=== PATIENT | female | born 1950 | race Caucasian/White ===

== ENCOUNTER → 2016-05-21 | Outpatient (CLI) | payer BC ==
[~2016-05-21] MED LIST: ADVIN25/60 INH; ALBUAER2 INH; ASPI325T45 PO; ATOR-24 PO; CALC500C70 PO; CLR10 PO; GLC/500 PO; ISS/10 PO; METO-551 PO; MOME50SP5; NTRGSL/4 UT; NUTRTAB40 PO; OMEP20CA9 PO
[2016-05-21 12:23] LABS: BASO % 0.6 %; BASO ABS # 0.03 K/uL (0-0.2); COMPLETE YES; EOS % 1.9 %; IG% 0.2 %; LYMPH % 33.6 %; LYMPH ABS # 1.78 K/uL (1.2-3.4); MEAN CELL VOLUME 89.8 fL (80-100); MEAN CORPUSCULAR HEMOGLOBIN 29.4 pg (25-34); MEAN CORPUSCULAR HGB CONC 32.8 g/dl (32-36); MEAN PLATELET VOLUME 10.4 fL (7.4-10.4); MONO % 10.6 %; NEUT % 53.1 %; PLATELET COUNT 245 K/uL (130-400); RED BLOOD COUNT 4.01 M/uL (4.2-5.4); WHITE BLOOD COUNT 5.29 K/uL (4.8-10.8)
[2016-05-21 13:14] LABS: ALT/SGPT 27 U/L (12-78); BLOOD UREA NITROGEN 9 mg/dl (7-18); BUN/CREATININE RATIO 15.6 (10-20); CALCIUM 9.2 mg/dl (8.5-10.1); CARBON DIOXIDE 28 mmol/L (21-32); CHLORIDE 108 mmol/L (98-107); CHOLESTEROL 189 mg/dl (0-200); CREATININE 0.59 mg/dl (0.60-1.20); GLUCOSE 95 mg/dl (70-99); POTASSIUM 4.1 mmol/L (3.5-5.1); SODIUM 144 mmol/L (136-145); TRIGLYCERIDES 149 mg/dl (0-150); VERY LOW DENSITY LIPOPROT CALC 30 mg/dl
[2016-05-21 13:23] LABS: ALB/GLOB RATIO 1.3 (0.9-2); ALKALINE PHOSPHATASE 89 U/L (45-117); AST/SGOT 15 U/L (15-37); CHOLESTEROL/HDL RATIO 3.7; HDL CHOLESTEROL 51 mg/dl; LDL CHOLESTEROL CALCULATED 108 mg/dl
[2016-05-21 13:25] LABS: ESTIMATED AVERAGE GLUCOSE 134 mg/dl; HA1C FLAG Normal (Normal)
== END | disposition home or self-care (01) ==
LOC: C.LAB1850 11:24
PROVIDERS: ATTEND Internal Medicine
DX: E11.9 Type 2 diabetes mellitus without complications (principal); D64.9 Anemia, unspecified; E78.5 Hyperlipidemia, unspecified; Z12.11 Encounter for screening for malignant neoplasm of colon

== ENCOUNTER → 2016-05-22 | Outpatient (CLI) | payer BC | END | disposition home or self-care (01) | LOC: C.LABSPEC 14:02 | PROVIDERS: ATTEND Internal Medicine | DX: E78.5 Hyperlipidemia, unspecified (principal); E11.9 Type 2 diabetes mellitus without complications; D64.9 Anemia, unspecified; Z12.11 Encounter for screening for malignant neoplasm of colon ==

== ENCOUNTER → 2016-05-26 | Outpatient (CLI) | payer BC | END | disposition home or self-care (01) | LOC: C.LAB1850 12:08 | PROVIDERS: ATTEND Internal Medicine | DX: E11.9 Type 2 diabetes mellitus without complications (principal); E78.5 Hyperlipidemia, unspecified; D64.9 Anemia, unspecified; Z12.11 Encounter for screening for malignant neoplasm of colon; Z11.59 Encounter for screening for other viral diseases ==

== ENCOUNTER → 2016-06-05 | Outpatient (CLI) | payer BC ==
--- NOTE | 2016-06-05 13:04 | MAMMOGRAPHY REPORT ---
BILATERAL DIGITAL DIAGNOSTIC MAMMOGRAM TOMOSYNTHESIS WITH CAD: 06/05/2016 CLINICAL HISTORY: 12 month follow-up of left breast asymmetries. TECHNIQUE: Breast tomosynthesis in addition to standard 2D mammography was performed. Current study was also evaluated with a Computer Aided Detection (CAD) system. Bilateral CC and MLO 2-D and majo synthesis images were obtained. COMPARISON: Comparison is made to exams dated: 06/05/2015 mammogram, 12/04/2014 ultrasound, 12/05/19 15 mammogram, 05/02/2014 mammogram, 05/02/2014 ultrasound, and 04/21/2014 mammogram - [facility]. BREAST COMPOSITION: There are scattered areas of fibroglandular density in both breasts. FINDINGS: There are no suspicious masses, calcifications, or areas of architectural distortion noted in either breast. There has been no significant interval change compared to prior exams. Small no dular asymmetry seen within the left superior breast is stable dating back to the April 2014 exam, a nd considered benign given long-term stability. IMPRESSION: ACR BI-RADS CATEGORY 2: BENIGN There is no mammographic evidence of malignancy in either breast. A 1 year screening mammogram is re commended. The patient has been verbally notified of the results. Approximately 10% of breast cancers are not detected with mammography. A negative mammographic repor t should not delay biopsy if a clinically suggestive mass is present. Sally Urena M.D. /:06/05/2016 11:10:05 [employer] Feeder: Almita Johnson, [facility] letter sent: Normal 1/2 BI-RADS Code: ACR BI-RADS Category 2: Benign
== END | disposition home or self-care (01) ==
LOC: C.MAMM 10:47
PROVIDERS: ATTEND Internal Medicine
DX: R92.8 Other abnormal and inconclusive findings on diagnostic imaging of breast (principal)

== ENCOUNTER → 2016-09-08 | Outpatient (CLI) | payer BC | END | disposition home or self-care (01) | LOC: C.MAMM 09:18 | PROVIDERS: ATTEND Internal Medicine | DX: M85.851 Other specified disorders of bone density and structure, right thigh (principal); M85.852 Other specified disorders of bone density and structure, left thigh ==

== ENCOUNTER → 2016-11-24 | Outpatient (CLI) | payer BC ==
[2016-11-24 12:42] LABS: ALT/SGPT 34 U/L (12-78); AST/SGOT 21 U/L (15-37); BLOOD UREA NITROGEN 10 mg/dl (7-18); BUN/CREATININE RATIO 16.4 (10-20); CALCIUM 8.8 mg/dl (8.5-10.1); CARBON DIOXIDE 28 mmol/L (21-32); CHLORIDE 109 mmol/L (98-107); CREATININE 0.63 mg/dl (0.60-1.20); GLUCOSE 87 mg/dl (70-99); POTASSIUM 3.9 mmol/L (3.5-5.1); SODIUM 144 mmol/L (136-145)
[2016-11-24 12:45] LABS: ALB/GLOB RATIO 1.3 (0.9-2); ALKALINE PHOSPHATASE 85 U/L (45-117)
[2016-11-24 12:56] LABS: ESTIMATED AVERAGE GLUCOSE 134 mg/dl; HA1C FLAG Normal (Normal)
== END | disposition home or self-care (01) ==
LOC: C.LAB1850 11:31
PROVIDERS: ATTEND Internal Medicine
DX: E11.9 Type 2 diabetes mellitus without complications (principal)

== ENCOUNTER → 2017-05-05 | Outpatient (CLI) | payer BC ==
[2017-05-05 09:31] LABS: BASO % 0.7 %; BASO ABS # 0.04 K/uL (0-0.2); EOS % 4.1 %; EOS ABS # 0.23 K/uL (0-0.5); HEMATOCRIT 36.9 % (37-47); IG# 0.01 K/uL (0.00-0.02); LYMPH % 33.6 %; LYMPH ABS # 1.89 K/uL (1.2-3.4); MEAN CELL VOLUME 90.9 fL (80-100); MEAN CORPUSCULAR HEMOGLOBIN 29.6 pg (25-34); MEAN CORPUSCULAR HGB CONC 32.5 g/dl (32-36); MEAN PLATELET VOLUME 10.1 fL (7.4-10.4); MONO ABS # 0.62 K/uL (0.11-0.59); NEUT % 50.4 %; NEUT ABS # 2.84 K/uL (1.4-6.5); PLATELET COUNT 253 K/uL (130-400); RED CELL DISTRIBUTION WIDTH CV 14.9 % (11.5-14.5); WHITE BLOOD COUNT 5.63 K/uL (4.8-10.8)
[2017-05-05 09:52] LABS: HEMOGLOBIN A1C 6.1 % (4.5-5.6)
[2017-05-05 10:06] LABS: ALBUMIN 3.8 gm/dl (3.4-5.0); BLOOD UREA NITROGEN 7 mg/dl (7-18); CARBON DIOXIDE 29 mmol/L (21-32); GLUCOSE 103 mg/dl (70-99); POTASSIUM 3.9 mmol/L (3.5-5.1); SODIUM 141 mmol/L (136-145)
[2017-05-05 10:16] LABS: ALKALINE PHOSPHATASE 92 U/L (45-117); ALT/SGPT 34 U/L (12-78); AST/SGOT 20 U/L (15-37); CHOLESTEROL 194 mg/dl (0-200); LDL CHOLESTEROL CALCULATED 108 mg/dl; TOTAL PROTEIN 7.1 gm/dl (6.4-8.2); TRANSFERRIN 299 mg/dl (200-360)
== END | disposition home or self-care (01) ==
LOC: C.LAB1850 08:49
PROVIDERS: ATTEND Internal Medicine
DX: D64.9 Anemia, unspecified (principal); E11.9 Type 2 diabetes mellitus without complications

== ENCOUNTER 2019-11-29 13:04 | Observation (INO) ==
[2019-11-29] MEDS ORDERED: ONDANSETRON INJ 2 MG/ML 2 ML VIAL IV STA ×2 (13:13→15:17)
[2019-11-29] MEDS ORDERED: SODIUM CHLORIDE 0.9% 1000ML 1,000 ML IV SCH (13:15)
[2019-11-29] MEDS ORDERED: fentaNYL citrate 100 MCG/2 ML VIAL IV STA ×3 (13:22→16:22)
[2019-11-29] MEDS ORDERED: FAMOTIDINE 20MG IV PUSH 20 MG/5 ML SYR IV STA (13:22)
--- NOTE | 2019-11-29 13:26 | Emergency Department Note ---
Impression & Plan Acute cholecystitis, Nausea & vomiting, Weakness, Myalgia ED Provider Note Provider: Preet Borges MD DATE OF SERVICE:11/29/2019 CHIEF COMPLAINT: Nausea, vomiting, weakness HISTORY OF PRESENT ILLNESS: Patient is a 69-year-old female history of CAD with stents, hyperlipidemia, hypertension, diabetes, UTI presenting here today with her son stating that she has had chills, fevers, abdominal pain, vomiting starting 2 days ago. Denies any known exposures to sick contacts. Patient did have a telehealth visit this morning to discuss the symptoms and outpatient COVID testing was ordered. Patient states she had yohan pains and nausea after zoroastrian on Thursday that improved some yesterday but still with some central mid abdominal burning in her stomach. Was able to eat some yesterday. This morning pain worsened and significant nausea with several episodes of vomiting. Denies any diarrhea or constipation symptoms. She denies any blood in the vomit today. Chills reported and feels poor overall with myalgias but denies fever greater than 100. Denies any chest pain or shortness of breath. Denies sore throat at this point or sinus congestion. Denies urinary symptoms. Denies radiation of the pain to her back or down the legs. REVIEW OF SYSTEMS: A total of 10 review of systems was obtained and negative except as stated above in the HPI. PAST MEDICAL HISTORY: As noted above MEDICATIONS: Reviewed home medication list SOCIAL HISTORY: Lives by herself, non-smoker PHYSICAL EXAM: GENERAL: alert and oriented appears fatigued and right has an emesis bag in her hand Head: normocephalic and atraumatic EYES: No injection, discharge or icterus. NECK: Trachea midline. Supple. ENT: Mucous membranes pink and moist. LUNGS: Airway patent. No retractions. Breath sounds clear HEART: Regular rate and rhythm. No chest wall tenderness ABDOMEN: Soft with some mild to moderate upper mid abdominal tenderness into the right upper quadrant. No guarding. Not peritoneal SKIN: Acyanotic, warm, dry, without rashes EXTREMITIES: Without swelling, tenderness or deformity NEUROLOGICAL: No focal deficits. No aphasia. No facial droop or slurred speech. Ambulatory. EK bpm sinus rhythm with sinus arrhythmia. Left axis. No acute ST segment elevation noted. Nonspecific T wave change at aVL in comparison to previous from May 11, 2013 without significant change CONTINUOUS CARDIAC MONITORING: was ordered and showed a heart rate of 65 bpm in normal sinus rhythm occasional sinus arrhythmia Patient's laboratory studies and imaging reviewed. Differential includes Appendicitis, infections, diverticulitis, UTI, obstruction, mesenteric ischemia, aortic pathology, inflammatory bowel disease, renal colic, PUD, pancreatitis, biliary pathology, hernia, volvulus, constipati on, as well as other pathologies. IMPRESSION/MEDICAL DECISION MAKING: Patient presents with some mid abdominal burning and nausea for several days with worsening vomiting now weakness and myalgias. Does not appear meningitic. Denies chest pain or shortness of breath and lower suspicion this represents acute ACS or PE given this. Given current pandemic I will send COVID test. CT the abdomen pelvis obtained well with basic laboratory studies. Denies urinary symptoms seem atypical for UTI. No significant extremity swelling and I doubt fluid overload or DVT. No focal deficits and doubt we need imaging and doubt this represents CVA at this point. Given some IV hydration, fentanyl, Pepcid, and Zofran for symptom control.. Possible intra-abdominal process such as hepatitis or pancreatitis versus GI issues such as gastritis. Could be a viral early gastroenteritis as well. Not significantly tender and I doubt any acute intra-abdominal perforation. Laboratory studies show no anemia. Leukocytosis of 13 is noted. No evidence of transaminitis or significant electrolyte abnormality. Influenza negative. Chest x-ray again without acute findings. Called by radiology based on the CT there concern for some mild gallbladder distention and infiltration with some gas likely within the gallbladder wall. Given this discussed with the patient and general surgery. Patient does have some right upper quadrant tenderness but I would not say a Rosario's and not peritoneal. Discussed with Dr. Randhawa of general surgery including the findings of gas in the gallbladder and he states that he would evaluate the patient and wished for Zosyn to be given. He recommended medicine admission. The hospitalist was contacted. Patient has been hemodynamically stable here. Given additional narcotics for pain control. Surgery evaluated and plan to take the patient to the OR from the emergency department for surgical treatment of cholecystitis. Hospitalist was aware. DIAGNOSIS: Nausea and vomiting, acute cholecystitis DISPOSITION: Admission Past Med/Surg History Medical History CAD in [place] artery Carotid atherosclerosis Chronic cerebral ischemia Coronary artery disease Diabetes mellitus type 2, controlled GERD (gastroesophageal reflux disease) Hyperlipidemia Hypertension IL (myocardial infarction) Nausea Osteopenia Polyp, sigmoid colon Surgical History History of cardiac catheterization History of colonoscopy July 2019 History of coronary artery stent placement History of tonsillectomy S/P total hysterectomy and bilateral salpingo-oophorectomy S/P tubal ligation Family History Father Myocardial infarction Cardiac disorder Mother Cardiac disorder Sister Cardiac disorder Denies family history of Ovarian cancer Prostate cancer Breast cancer Colorectal cancer Social History Smoking Status: Never smoker Second Hand Exposure: No; Do You Dip or Chew Tobacco: No; Tobacco Cessation Education Requested by Patient: No Hx Alcohol Use: Yes Alcohol type: wine Hx Substance Use: No Preferred Language: Yakut Communication Ability: Effective Paper Supervisor Required: No Beliefs That Will Affect Care: None marital status: Current Living Situation: Alone current occupational status: retired Other Information That Helps Us Care for You: No Feels Safe at Home: Yes Safety Concerns: Feels Safe At This Time Dental Care, Regularly: Yes Physical Activity Frequency: Daily Physical Activity Frequency Comment: yardwork and walking Seatbelt Use: always Sunscreen Use: Yes Assistive Devices: Glasses Allergies Allergies Allergy/AdvReac Type Severity Reaction Status Date / Time Iodinated Contrast Media Allergy Unknown Unknown rxn Verified 10/28/19 14:42 iodine Allergy Unknown unknown Verified 10/28/19 14:42 shellfish derived Allergy Unknown SHRIMP Verified 10/28/19 14:42 ALLERGY Sulfa (Sulfonamide AdvReac Severe N&V, LIM[place], Verified 10/28/19 14:42 Antibiotics) body aches, cough lisinopril AdvReac Unknown COUGH Verified 11/29/19 17:01 diflunisal [From Dolobid] AdvReac Unknown Verified 11/29/19 15:50 Home Meds Home Medications Medication Instructions Recorded Confirmed albuterol sulfate 2.5 mg CONTINUOUS NEBULIZATION Q6H 08/04/18 11/29/19 #1 ml albuterol sulfate 90 mcg/actuation 2 puffs INHALATION Q6H PRN gm 08/04/18 11/29/19 aerosol inhaler budesonide-formoterol HFA 160 2 puffs INHALATION Q12H #1 gm 08/04/18 11/29/19 mcg-4.5 mcg/actuation aerosol inhaler mometasone 50 mcg/actuation nasal 1 sprays INTRANASAL DAILY gm 08/04/18 11/29/19 spray aspirin 325 mg tablet 325 mg PO DAILY tab 11/26/18 11/29/19 cyanocobalamin (vitamin B-12) 1,000 mcg SL DAILY tab 09/09/19 11/29/19 1,000 mcg sublingual tablet nitroglycerin 0.4 mg sublingual 0.4 mg SL .COMPLEX PRN tab 09/09/19 11/29/19 tablet calcium carbonate 600 mg (1,500 1 cap PO DAILY cap 10/28/19 11/29/19 mg)-vitamin D3 500 unit capsule latanoprost 1 drp OPB HS 11/29/19 11/29/19 Previous Rx's Medication Instructions Recorded isosorbide mononitrate 10 mg tablet 10 mg PO TID #270 tab 09/23/18 metoprolol tartrate 50 mg tablet 75 mg PO BID #270 tabs 12/06/18 metformin 500 mg tablet 500 mg PO DAILY #90 tab 01/25/19 omeprazole 20 mg capsule,delayed 20 mg PO DAILY #90 cap 07/21/19 release atorvastatin 40 mg tablet 40 mg PO DAILY #90 tab 10/19/19 ondansetron HCl 4 mg tablet 4 mg PO Q6H PRN #60 tab 11/29/19 Results & Data (ED) Vital Signs Vital Signs - 24 hr 11/29/19 13:07 11/29/19 14:14 11/29/19 14:59 Temperature 37.1 C Temperature Source Oral Pulse Rate 59 L Pulse Rate [Apical] 68 62 Pulse Rate [Left Finger] Pulse Rate from SpO2 Sensor Respiratory Rate 18 16 16 Respiratory Effort / Characteristics Respiratory Depth Respiratory Pattern Blood Pressure 152/100 H Blood Pressure [Right Arm] 166/81 H 146/91 H Blood Pressure Mean 117 Blood Pressure Mean [Right Arm] 109 109 Pulse Oximetry 95 90 93 Oxygen Delivery Method Room Air Room Air Sepsis Recent Fever Within 48 Hours Yes Sepsis New/Unexplained Change in Mental Status No Sepsis Action Taken by Nursing No Action Required 11/29/19 15:00 11/29/19 15:01 11/29/19 15:23 Temperature Temperature Source Pulse Rate 75 83 Pulse Rate [Apical] Pulse Rate [Left Finger] Pulse Rate from SpO2 Sensor 74 78 Respiratory Rate 22 29 H Respiratory Effort / Characteristics Respiratory Depth Respiratory Pattern Blood Pressure 157/72 H Blood Pressure [Right Arm] Blood Pressure Mean 87 Blood Pressure Mean [Right Arm] Pulse Oximetry 97 94 97 Oxygen Delivery Method Room Air Sepsis Recent Fever Within 48 Hours Sepsis New/Unexplained Change in Mental Status Sepsis Action Taken by Nursing 11/29/19 15:30 11/29/19 16:00 11/29/19 16:30 Temperature Temperature Source Pulse Rate 82 67 70 Pulse Rate [Apical] Pulse Rate [Left Finger] Pulse Rate from SpO2 Sensor 84 67 69 Respiratory Rate 18 21 22 Respiratory Effort / Characteristics Respiratory Depth Respiratory Pattern Blood Pressure 170/98 H 176/75 H 161/86 H Blood Pressure [Right Arm] Blood Pressure Mean 118 110 113 Blood Pressure Mean [Right Arm] Pulse Oximetry 100 100 Oxygen Delivery Method Sepsis Recent Fever Within 48 Hours Sepsis New/Unexplained Change in Mental Status Sepsis Action Taken by Nursing 11/29/19 17:00 11/29/19 17:33 Temperature 36.7 C Temperature Source Oral Pulse Rate 71 Pulse Rate [Apical] Pulse Rate [Left Finger] 88 Pulse Rate from SpO2 Sensor 72 Respiratory Rate 17 18 Respiratory Effort / Characteristics Non-Labored Spontaneous Respiratory Depth Normal Respiratory Pattern Regular Blood Pressure 169/77 H Blood Pressure [Right Arm] 154/70 H Blood Pressure Mean 93 Blood Pressure Mean [Right Arm] 98 Pulse Oximetry 99 94 Oxygen Delivery Method Room Air Sepsis Recent Fever Within 48 Hours Sepsis New/Unexplained Change in Mental Status Sepsis Action Taken by Nursing Laboratory Data Result diagrams: 11/29/19 14:00 11/29/19 14:00 Lab Results 11/29/19 11/29/19 11/29/19 Range/Units 14:00 14:00 14:00 WBC 13.50 H (4.8-10.8) K/uL RBC 4.36 (4.2-5.4) M/uL Hgb 13.4 (12.0-16.0) g/dL Hct 40.3 (37-47) % MCV 92.4 (80-100) fL MCH 30.7 (25-34) pg MCHC 33.3 (32-36) g/dL RDW Std Deviation 49.0 H (36.4-46.3) fL RDW Coeff of Rahul 14.3 (11.5-14.5) % Plt Count 235 (130-400) K/uL MPV 10.8 H (7.4-10.4) fL Immature Gran % (Auto) 0.2 % Neut % (Auto) 86.0 % Lymph % (Auto) 7.5 % [place] % (Auto) 6.1 % Eos % (Auto) 0.1 % Baso % (Auto) 0.1 % Neut # (Auto) 11.60 H (1.4-6.5) K/uL Lymph # (Auto) 1.01 L (1.2-3.4) K/uL [place] # (Auto) 0.82 H (0.11-0.59) K/uL Eos # (Auto) 0.02 (0-0.5) K/uL Baso # (Auto) 0.02 (0-0.2) K/uL Immature Gran # (Auto) 0.03 H (0.00-0.02) K/uL PT 10.6 (9.0-12.0) Seconds INR 1.0 (0.9-1.1) Sodium 139 (136-145) mmol/L Potassium 3.5 (3.5-5.1) mmol/L Chloride 105 (98-107) mmol/L Carbon Dioxide 27 (21-32) mmol/L Anion Gap 7.0 (3-11) BUN 7 (7-18) mg/dl Creatinine 0.73 (0.6-1.2) mg/dl Est Cr Clr Drug Dosing Not Reportable Est GFR ( Amer) 96.7 Est GFR (Non-Af Amer) 83.4 BUN/Creatinine Ratio 10.2 (10-20) Glucose 138 H (70-99) mg/dl POC Glucose (70-99) mg/dl Lactate (0.4-2.0) mmol/L Calcium 9.7 (8.5-10.1) mg/dl Magnesium 2.1 (1.8-2.4) mg/dl Total Bilirubin 0.7 (0.2-1) mg/dl AST 14 L (15-37) U/L ALT 26 (12-78) U/L Alkaline Phosphatase 95 (45-117) U/L Troponin I < 0.015 (0-0.045) ng/ml Total Protein 7.6 (6.4-8.2) gm/dl Albumin 3.7 (3.4-5.0) gm/dl Globulin 3.9 (2.5-4.0) gm/dl Albumin/Globulin Ratio 0.9 (0.9-2) Lipase 83 (73-393) U/L TSH 0.948 (0.300-4.500) uIu/ml COVID-19 Eval Order COVID-19 PCR (Negative) Influ A Molecular Assay (Negative) Influ B Molecular Assay (Negative) 11/29/19 11/29/19 11/29/19 Range/Units 14:00 14:10 14:10 WBC (4.8-10.8) K/uL RBC (4.2-5.4) M/uL Hgb (12.0-16.0) g/dL Hct (37-47) % MCV (80-100) fL MCH (25-34) pg MCHC (32-36) g/dL RDW Std Deviation (36.4-46.3) fL RDW Coeff of Rahul (11.5-14.5) % Plt Count (130-400) K/uL MPV (7.4-10.4) fL Immature Gran % (Auto) % Neut % (Auto) % Lymph % (Auto) % [place] % (Auto) % Eos % (Auto) % Baso % (Auto) % Neut # (Auto) (1.4-6.5) K/uL Lymph # (Auto) (1.2-3.4) K/uL [place] # (Auto) (0.11-0.59) K/uL Eos # (Auto) (0-0.5) K/uL Baso # (Auto) (0-0.2) K/uL Immature Gran # (Auto) (0.00-0.02) K/uL PT (9.0-12.0) Seconds INR (0.9-1.1) Sodium (136-145) mmol/L Potassium (3.5-5.1) mmol/L Chloride (98-107) mmol/L Carbon Dioxide (21-32) mmol/L Anion Gap (3-11) BUN (7-18) mg/dl Creatinine (0.6-1.2) mg/dl Est Cr Clr Drug Dosing Est GFR ( Amer) Est GFR (Non-Af Amer) BUN/Creatinine Ratio (10-20) Glucose (70-99) mg/dl POC Glucose (70-99) mg/dl Lactate 1.6 (0.4-2.0) mmol/L Calcium (8.5-10.1) mg/dl Magnesium (1.8-2.4) mg/dl Total Bilirubin (0.2-1) mg/dl AST (15-37) U/L ALT (12-78) U/L Alkaline Phosphatase (45-117) U/L Troponin I (0-0.045) ng/ml Total Protein (6.4-8.2) gm/dl Albumin (3.4-5.0) gm/dl Globulin (2.5-4.0) gm/dl Albumin/Globulin Ratio (0.9-2) Lipase (73-393) U/L TSH (0.300-4.500) uIu/ml COVID-19 Eval Order Covid19 Done at [facility] COVID-19 PCR (Negative) Influ A Molecular Assay Negative (Negative) Influ B Molecular Assay Negative (Negative) 11/29/19 11/29/19 Range/Units 14:10 17:35 WBC (4.8-10.8) K/uL RBC (4.2-5.4) M/uL Hgb (12.0-16.0) g/dL Hct (37-47) % MCV (80-100) fL MCH (25-34) pg MCHC (32-36) g/dL RDW Std Deviation (36.4-46.3) fL RDW Coeff of Rahul (11.5-14.5) % Plt Count (130-400) K/uL MPV (7.4-10.4) fL Immature Gran % (Auto) % Neut % (Auto) % Lymph % (Auto) % [place] % (Auto) % Eos % (Auto) % Baso % (Auto) % Neut # (Auto) (1.4-6.5) K/uL Lymph # (Auto) (1.2-3.4) K/uL [place] # (Auto) (0.11-0.59) K/uL Eos # (Auto) (0-0.5) K/uL Baso # (Auto) (0-0.2) K/uL Immature Gran # (Auto) (0.00-0.02) K/uL PT (9.0-12.0) Seconds INR (0.9-1.1) Sodium (136-145) mmol/L Potassium (3.5-5.1) mmol/L Chloride (98-107) mmol/L Carbon Dioxide (21-32) mmol/L Anion Gap (3-11) BUN (7-18) mg/dl Creatinine (0.6-1.2) mg/dl Est Cr Clr Drug Dosing Est GFR ( Amer) Est GFR (Non-Af Amer) BUN/Creatinine Ratio (10-20) Glucose (70-99) mg/dl POC Glucose 138 H (70-99) mg/dl Lactate (0.4-2.0) mmol/L Calcium (8.5-10.1) mg/dl Magnesium (1.8-2.4) mg/dl Total Bilirubin (0.2-1) mg/dl AST (15-37) U/L ALT (12-78) U/L Alkaline Phosphatase (45-117) U/L Troponin I (0-0.045) ng/ml Total Protein (6.4-8.2) gm/dl Albumin (3.4-5.0) gm/dl Globulin (2.5-4.0) gm/dl Albumin/Globulin Ratio (0.9-2) Lipase (73-393) U/L TSH (0.300-4.500) uIu/ml COVID-19 Eval Order COVID-19 PCR NEGATIVE (Negative) Influ A Molecular Assay (Negative) Influ B Molecular Assay (Negative) Administered Medications Discontinued Medications Fentanyl Citrate (Fentanyl Citrate 100 Mcg/2 Ml Vial) 50 mcg IV NOW STA Stop: 11/29/19 13:23 Last Admin: 11/29/19 14:08 Dose: 50 mcg Documented by: [id number] Fentanyl Citrate (Fentanyl Citrate 100 Mcg/2 Ml Vial) 50 mcg IV NOW STA Stop: 11/29/19 15:18 Last Admin: 11/29/19 15:26 Dose: 50 mcg Documented by: [id number] Fentanyl Citrate (Fentanyl Citrate 100 Mcg/2 Ml Vial) 50 mcg IV NOW STA Stop: 11/29/19 16:23 Last Admin: 11/29/19 16:46 Dose: 50 mcg Documented by: [id number] Sodium Chloride (Nss 1000ml) 1,000 mls @ 999 mls/hr IV .Q1H1M RA Stop: 11/29/19 14:15 Last Infusion: 11/29/19 15:04 Dose: 0 mls/hr Documented by: [id number] Admin: 11/29/19 14:08 Dose: 999 mls/hr Documented by: [id number] Famotidine (Pepcid 20mg Iv Push) 20 mg in 5 mls @ 2.5 mls/min IV NOW STA Stop: 11/29/19 13:23 Last Admin: 11/29/19 14:08 Dose: 2.5 mls/min Documented by: [id number] Piperacillin Sod/Tazobactam Sod (Zosyn) 4.5 gm in 120 mls @ 240 mls/hr IV NOW ONE Stop: 11/29/19 15:55 Last Infusion: 11/29/19 16:20 Dose: 0 mls/hr Documented by: [id number] Admin: 11/29/19 15:44 Dose: 240 mls/hr Documented by: [id number] Ondansetron HCl (Ondansetron Inj 2 Mg/Ml 2 Ml Vial) 4 mg IV NOW STA Stop: 11/29/19 13:14 Last Admin: 11/29/19 14:08 Dose: 4 mg Documented by: [id number] Ondansetron HCl (Ondansetron Inj 2 Mg/Ml 2 Ml Vial) 4 mg IV NOW STA Stop: 11/29/19 15:18 Last Admin: 11/29/19 15:26 Dose: 4 mg Documented by: [id number] Discharge Plan Visit Data Chief Complaint: Illness Stated Complaint: SICK, DOESN'T FEEL WELL ED Provider: Preet Borges Discharge Problem: Acute cholecystitis, Nausea & vomiting, Weakness, Myalgia Discharge Instructions Interventions: ED Discharge Assessment Last Done: 11/29/19 17:25 Forms Stand Alone Forms: Thryve Prescriptions Prescriptions: No Action isosorbide mononitrate 10 mg tablet 10 mg PO TID Qty: 270 RF: 3 metoprolol tartrate 50 mg tablet 75 mg PO BID Qty: 270 RF: 3 metformin 500 mg tablet 500 mg PO DAILY Qty: 90 RF: 3 omeprazole 20 mg capsule,delayed release(DR/EC) 20 mg PO DAILY Qty: 90 RF: 3 atorvastatin 40 mg tablet 40 mg PO DAILY Qty: 90 RF: 1 aspirin 325 mg tablet 325 mg PO DAILY RF: 0 calcium carbonate-vitamin D3 [Calcium 600 with Vitamin D3] 600 mg(1,500mg) - 500 unit capsule 1 cap PO DAILY RF: 0 mometasone 50 mcg/actuation spray,non-aerosol 1 sprays intranasal DAILY RF: 0 Symbicort 160-4.5 mcg/actuation HFA aerosol inhaler 2 puffs inhalation Q12H Qty: 1 RF: 0 albuterol sulfate 2.5 mg /3 mL (0.083 %) solution for nebulization 2.5 mg continuous nebulization Q6H Qty: 1 RF: 0 albuterol sulfate 90 mcg/actuation HFA aerosol inhaler 2 puffs inhalation Q6H PRN (Reason: Shortness Of Breath) RF: 0 cyanocobalamin (vitamin B-12) 1,000 mcg tablet, sublingual 1,000 mcg SL DAILY RF: 0 nitroglycerin 0.4 mg tablet, sublingual 0.4 mg SL .COMPLEX PRN (Reason: chest pain) RF: 0 ondansetron HCl [Zofran] 4 mg tablet 4 mg PO Q6H PRN (Reason: nausea and vomiting) Qty: 60 RF: 0 latanoprost 0.005 % drops 1 drp OPB HS RF: 0 Referrals Referrals: Juju Balbuena MD [Primary Care Provider] - Discharge Problem: Nausea & vomiting Qualifiers: Vomiting type: unspecified Vomiting Intractability: non-intractable Qualified Code(s): R11.2 - Nausea with vomiting, unspecified
--- NOTE | 2019-11-29 14:02 | XRay Report ---
XR chest 1V portable CLINICAL HISTORY: weakness COMPARISON STUDY: Chest radiograph and chest CT May 10, 2013. FINDINGS: Lung volumes are mildly diminished. This is unchanged. Mild bibasilar opacities favor atele ctasis. There is no pneumothorax or pleural effusion. Cardiomediastinal silhouette is stable. IMPRESSION: No acute cardiopulmonary findings. No change in appearance of the chest. ACT 112: Negative or not required by law. Electronically signed by: Dany Pitt M.D. 11/29/2019 2:00 PM
[2019-11-29 14:24] LABS: Basophils # (auto) 0.02 K/uL (0-0.2); Basophils % (auto) 0.1 %; Eosinophils # (auto) 0.02 K/uL (0-0.5); Eosinophils % (auto) 0.1 %; Hematocrit (blood only) 40.3 % (37-47); Hemoglobin 13.4 g/dL (12.0-16.0); Immature Granulocytes # (auto) 0.03 K/uL (0.00-0.02); Immature Granulocytes % (auto) 0.2 %; Lymphocytes # (auto) 1.01 K/uL (1.2-3.4); Lymphocytes % (auto) 7.5 %; Mean Corpuscular Hemoglobin 30.7 pg (25-34); Mean Corpuscular Hgb Conc 33.3 g/dL (32-36); Mean Corpuscular Volume 92.4 fL (80-100); Mean Platelet Volume 10.8 fL (7.4-10.4); Monocytes # (auto) 0.82 K/uL (0.11-0.59); Monocytes % (auto) 6.1 %; Platelet Count 235 K/uL (130-400); RDW Coefficient of Variation 14.3 % (11.5-14.5); Red Blood Count 4.36 M/uL (4.2-5.4)
[2019-11-29 14:31] LABS: Prothrombin Time 10.6 Seconds (9.0-12.0)
[2019-11-29 14:41] LABS: Alanine Aminotransferase 26 U/L (12-78); Albumin Level 3.7 gm/dl (3.4-5.0); BUN Creatinine Ratio 10.2 (10-20); Blood Urea Nitrogen 7 mg/dl (7-18); Calcium 9.7 mg/dl (8.5-10.1); Carbon Dioxide 27 mmol/L (21-32); Chloride 105 mmol/L (98-107); Est GFR (African American) 96.7; Est GFR (Non-African American) 83.4; Glucose 138 mg/dl (70-99); Lipase 83 U/L (73-393); Magnesium 2.1 mg/dl (1.8-2.4); Potassium 3.5 mmol/L (3.5-5.1); Sodium 139 mmol/L (136-145)
[2019-11-29 14:52] LABS: Albumin Globulin Ratio 0.9 (0.9-2); Alkaline Phosphatase 95 U/L (45-117); Aspartate Aminotransferase 14 U/L (15-37); Bilirubin,Total 0.7 mg/dl (0.2-1); Globulin 3.9 gm/dl (2.5-4.0); Thyroid Stimulating Hormone 0.948 uIu/ml (0.300-4.500); Total Protein 7.6 gm/dl (6.4-8.2); Troponin I < 0.015 ng/ml (0-0.045)
[2019-11-29 14:52] LABS: Influenza A virus by PCR Negative (Negative); Influenza B virus by PCR Negative (Negative)
--- NOTE | 2019-11-29 14:59 | CT Scan Report ---
CT OF THE ABDOMEN AND PELVIS WITHOUT CONTRAST CLINICAL HISTORY: Nausea, vomiting and abdominal pain. COMPARISON STUDY: CT of the chest, abdomen and pelvis May 10, 2013. TECHNIQUE: Axial images of the abdomen and pelvis were obtained without IV contrast. Images were revi ewed in the axial, sagittal, and coronal planes. Automated exposure control was utilized for the vanessa dy. A dose lowering technique was utilized adhering to the principles of ALARA. FINDINGS: A trace right pleural effusion is noted. No pneumatosis, free air or portal venous gas is p resent. Note is made of a small amount of gas likely within the gallbladder wall. There is also gas w ithin the cystic duct and a small amount of pneumobilia within the left hepatic lobe. Gallbladder is mildly distended. There is mild pericholecystic infiltration. There are stones within the gallbladder . There is a 7 mm stone likely within the gallbladder neck or cystic duct. There is mild dilatation o f the common bile duct. There is a probable diverticulum of the second portion the duodenum. Evaluati on of the abdomen and pelvis is suboptimal on this unenhanced exam. The spleen, adrenal glands, kidne ys and pancreas are normal. Is no hydronephrosis. There is trace fluid within the pelvis. There is co lonic diverticulosis without evidence for acute diverticulitis. The appendix is unremarkable. There a re no suspicious osseous lesions. IMPRESSION: 1. Cholelithiasis, including a stone within the gallbladder neck or cystic duct. Mild gallbladder dis tention and adjacent infiltration. These findings suggest acute cholecystitis. In addition, small bola unt of gas likely within the gallbladder wall as well as pneumobilia. These findings suggest emphysem atous cholecystitis. Findings discussed with Dr. Borges at time of dictation. 2. Mild biliary ductal dilatation which be correlated with liver function tests. 3. No bowel obstruction. Normal appendix. ACT 112: Negative or not required by law. Electronically signed by: Dany Pitt M.D. 11/29/2019 2:58 PM
[2019-11-29] MEDS ORDERED: PIPERACILLIN/TAZOBACTAM 4.5 GM/120 ML BAG IV ONE (15:26)
[2019-11-29] MEDS ORDERED: PIPERACILL/TAZOBAC CONSULT ACTIVE PRN (15:26)
--- NOTE | 2019-11-29 16:31 | Electrocardiogram Report ---
Test Reason : Blood Pressure : / mmHG Vent. Rate : 066 BPM Atrial Rate : 066 BPM P-R Int : 132 ms QRS Dur : 088 ms QT Int : 416 ms P-R-T Axes : 053 -40 050 degrees QTc Int : 436 ms Sinus rhythm with marked sinus arrhythmia Left axis deviation Anterior infarct (cited on or before 21-APR-2001) Abnormal ECG When compared with ECG of 11-MAY-2013 14:11, No significant change was found Confirmed by Mt Juan ([id number]) on 11/29/2019 4:31:21 PM Referred By: REFERRED SELF Confirmed By:Mt Juan
--- NOTE | 2019-11-29 16:53 | History & Physical Report ---
Date of Service November 29, 2019 Assessment & Plan (1) Acute cholecystitis: Zosyn IV as recommended by surgery - emphysematous gallbladder N.p.o., IV fluids Consult general surgery - ER discussed with Dr. Randhawa Revised cardiac risk index 2; 10.1% 30-day risk of , [place], cardiac arrest. Patient is medically optimized for surgery at this time. (2) Diabetes mellitus type 2, controlled: HbA1c 6.2. Hold Metformin BSG ACHS. NovoLog sliding scale. (3) Coronary artery disease: Postoperatively: Continue aspirin but switch to 81 mg p.o. daily Continue metoprolol tartrate 75 mg p.o. twice daily, isosorbide mononitrate 10 mg p.o. 3 times daily, atorvastatin 40 mg p.o. daily. (4) Hypertension: Postoperatively continue metoprolol with hold parameters, isosorbide mononitrate as above. (5) Hyperlipidemia: Continue atorvastatin 40 mg p.o. daily (6) GERD (gastroesophageal reflux disease): Switch omeprazole for pantoprazole as per hospital formulary Admission and Anticipated Discharge Date Admission Date: 11/29/2019 History of Present Illness Chief Complaint: Abdominal pain Primary Care Provider: Juju Balbuena MD Marlena Pérez is a 69-year-old female who presents to the ER with low-grade fever, chills, abdominal pain, nausea and vomiting. Initial symptoms started with which appeared to be mild and intermittent approximately 2 days ago. She denies anything unusual to eat. Started having a low-grade fever with chills this morning. Had a telehealth visit and recommended COVID-19 testing was ordered but never taken. No change in bowel movements, no melena or bright red blood in stool. No nausea or vomiting. Last bowel movement yesterday. Abdominal pain much more severe today therefore decided to come to the ER. Denies any urinary symptoms. In the ER she was noted to have right upper quadrant pain on examination and subsequent CT concerning for emphysematous cholecystitis with gas noted within the cystic duct and pneumobilia in the left hepatic lobe. ER physician discussed with Dr. Randhawa who plans to take the patient emergently to surgery. Medicine consulted for admission. COVID-19 PCR taken in ER negative. She has a significant history of CAD with stents however reports good exercise tolerance without chest pains or shortness of breath. Seen by her canary breeder in August, no changes at that time and no change in her symptoms since then. Allergies Allergy/AdvReac Type Severity Reaction Status Date / Time Iodinated Contrast Media Allergy Unknown Unknown rxn Verified 10/28/19 14:42 iodine Allergy Unknown unknown Verified 10/28/19 14:42 shellfish derived Allergy Unknown SHRIMP Verified 10/28/19 14:42 ALLERGY Sulfa (Sulfonamide AdvReac Severe N&V, [place], Verified 10/28/19 14:42 Antibiotics) body aches, cough lisinopril AdvReac Unknown COUGH Verified 11/29/19 17:01 diflunisal [From Dolobid] AdvReac Unknown Verified 11/29/19 15:50 Home Medications Home Medications Medication Instructions Recorded Confirmed Type albuterol sulfate 2.5 mg CONTINUOUS NEBULIZATION Q6H 08/04/18 11/29/19 History #1 ml albuterol sulfate 90 mcg/actuation 2 puffs INHALATION Q6H PRN gm 08/04/18 11/29/19 History aerosol inhaler budesonide-formoterol HFA 160 2 puffs INHALATION Q12H #1 gm 08/04/18 11/29/19 History mcg-4.5 mcg/actuation aerosol inhaler mometasone 50 mcg/actuation nasal 1 sprays INTRANASAL DAILY gm 08/04/18 11/29/19 History spray isosorbide mononitrate 10 mg tablet 10 mg PO TID #270 tab 09/23/18 11/29/19 Rx aspirin 325 mg tablet 325 mg PO DAILY tab 11/26/18 11/29/19 History metoprolol tartrate 50 mg tablet 75 mg PO BID #270 tabs 12/06/18 11/29/19 Rx metformin 500 mg tablet 500 mg PO DAILY #90 tab 01/25/19 11/29/19 Rx omeprazole 20 mg capsule,delayed 20 mg PO DAILY #90 cap 07/21/19 11/29/19 Rx release cyanocobalamin (vitamin B-12) 1,000 mcg SL DAILY tab 09/09/19 11/29/19 History 1,000 mcg sublingual tablet nitroglycerin 0.4 mg sublingual 0.4 mg SL .COMPLEX PRN tab 09/09/19 11/29/19 History tablet atorvastatin 40 mg tablet 40 mg PO DAILY #90 tab 10/19/19 11/29/19 Rx calcium carbonate 600 mg (1,500 1 cap PO DAILY cap 10/28/19 11/29/19 History mg)-vitamin D3 500 unit capsule latanoprost 1 drp OPB HS 11/29/19 11/29/19 History ondansetron HCl 4 mg tablet 4 mg PO Q6H PRN #60 tab 11/29/19 11/29/19 Rx oxycodone-acetaminophen [Percocet] 1 tab PO Q6H PRN #20 tab 12/01/19 Rx Past Med/Surg History Medical History CAD in [place] artery Carotid atherosclerosis Chronic cerebral ischemia Coronary artery disease Diabetes mellitus type 2, controlled GERD (gastroesophageal reflux disease) Hyperlipidemia Hypertension [place] (myocardial infarction) Nausea Osteopenia Polyp, sigmoid colon Surgical History History of cardiac catheterization History of colonoscopy July 2019 History of coronary artery stent placement History of tonsillectomy S/P total hysterectomy and bilateral salpingo-oophorectomy S/P tubal ligation Family History Father Myocardial infarction Cardiac disorder Mother Cardiac disorder Sister Cardiac disorder Denies family history of Ovarian cancer Prostate cancer Breast cancer Colorectal cancer Social History Smoking Status: Never smoker Second Hand Exposure: No; Hx Alcohol Use: Yes Alcohol type: wine Hx Substance Use: No Preferred Language: Icelandic Communication Ability: Effective Dinkey Mechanic Required: No Beliefs That Will Affect Care: None marital status: / Current Living Situation: Alone current occupational status: retired Feels Safe at Home: Yes Dental Care, Regularly: Yes Physical Activity Frequency: Daily Physical Activity Frequency Comment: yardwork and walking Seatbelt Use: always Sunscreen Use: Yes Assistive Devices: Glasses Review of Systems Review of Systems: All systems reviewed & are unremarkable except as noted in HPI & below Physical Exam Constitutional: well developed and well nourished; no acute distress Eyes: + anicteric sclerae; normal pupil size ENMT: external ear and nose normal, oropharynx normal Neck: normal visual inspection and trachea midline; no tracheal deviation Respiratory: normal respiratory effort, lungs clear to auscultation Cardiovascular: RRR, no murmur, no edema Gastrointestinal (Abdomen): Inspection/Auscultation: abdomen normal to inspection and normal bowel sounds; abdomen not distended Percussion/Palpation: + abdomen tender (RUQ), + guarding and abdomen soft; abdomen not rigid Musculoskeletal: no cyanosis or clubbing, extremities motor strength 5/5 Skin: no rashes, warm and dry Neurologic: moves all extremities and awake; not confused Psychiatric: A+Ox3, euthymic affect Genitourinary: no CVA tenderness Results & Data Results & Data ([facility]) Vital Signs (Past 12 Hours) Vital Signs Temp Pulse Pulse Resp BP BP Pulse Ox 11/29/19 15:01 94 11/29/19 14:59 62 16 146/91 H 93 11/29/19 14:14 68 16 166/81 H 90 11/29/19 13:07 37.1 C 59 L 18 152/100 H 95 Diagnostic Findings XR chest 1V portable IMPRESSION: No acute cardiopulmonary findings. No change in appearance of the chest. CT OF THE ABDOMEN AND PELVIS WITHOUT CONTRAST IMPRESSION: 1. Cholelithiasis, including a stone within the gallbladder neck or cystic duct. Mild gallbladder distention and adjacent infiltration. These findings suggest acute cholecystitis. In addition, small amount of gas likely within the gallbladder wall as well as pneumobilia. These findings suggest emphysematous cholecystitis. Findings discussed with Dr. Borges at time of dictation. 2. Mild biliary ductal dilatation which be correlated with liver function tests. 3. No bowel obstruction. Normal appendix. ECG Indication: abdominal pain Rate (beats per minute): 66 Rhythm: sinus with SA Findings: no acute ischemic change Comparison ECG Date: from (May 11, 2013) Change: no significant change Code Status & VTE Plan VTE Prophylaxis Plan VTE Prophylaxis will be ordered: Yes PG Care Time/CCT Total # of Minutes Spent Total Time Spent with Patient: Total time spent is greater than 50% in coordination of care (as documented) at patient's floor/unit and/or counseling patient: Coding Level of Care Code 41947 Initial Inpt Care Lvl 2 Diagnoses Acute cholecystitis K81.0 Diabetes mellitus type 2, controlled E11.9 Coronary artery disease I25.10 Hypertension I10 Hyperlipidemia E78.5 GERD (gastroesophageal reflux disease) K21.9
--- NOTE | 2019-11-29 16:55 | Surgery Consultation ---
Date of Consultation November 29, 2019 Assessment & Plan (1) Acute cholecystitis: (2) Emphysematous cholecystitis: pt is a 69 year-old female who presents to ER with 3 days history acute RUQ pain with nausea, vomiting, chills, IMP: Emphysematous cholecystitis, cholelithiasis, Plan, base on pt has severe RUQ pain and CT scan, I recommend to do Emergent laparoscopic cholecystectomy possible open or cholangiogram, D/W benefits, risks and alternatives of the surgery, the risks - infection, sepsis, bleeding injury [place], [place], DVT, stroke, , pt and her son understood, they agree with the surgery, I answered all questions, pre-op iv antibiotic. Present on Admission?: Yes (3) Cholelithiasis and acute cholecystitis with obstruction: History of Present Illness History of Present Illness CHIEF COMPLAINT: Nausea, vomiting, weakness HISTORY OF PRESENT ILLNESS: Patient is a 69-year-old female history of CAD with stents, hyperlipidemia, hypertension, diabetes, UTI presenting here today with her son stating that she has had chills, fevers, abdominal pain, vomiting starting 2 days ago. Denies any known exposures to sick contacts. Patient did have a telehealth visit this morning to discuss the symptoms and outpatient COVID testing was ordered. Patient states she had yohan pains and nausea after hindu on Thursday that improved some yesterday but still with some central mid abdominal burning in her stomach. Was able to eat some yesterday. This morning pain worsened and significant nausea with several episodes of vomiting. Denies any diarrhea or constipation symptoms. She denies any blood in the vomit today. Chills reported and feels poor overall with myalgias but denies fever greater than 100. Denies any chest pain or shortness of breath. Denies sore throat at this point or sinus congestion. Denies urinary symptoms. Denies radiation of the pain to her back or down the legs. I ( Zachary Randhawa MD ) got a call for consult acute cholecystitis with emphysematous cholecystitis. I reviewed pt's H/P, labs, CT scan with pt and her son, pt is still have severe RUQ pain with nausea, and vomiting and chills. pt said she can not tolerated the pain, pt has been stopped taking 325 mg ASA 3 days ago, pt denies any chest pain, REVIEW OF SYSTEMS: A total of 10 review of systems was obtained and negative except as stated above in the HPI. PAST MEDICAL HISTORY: As noted above MEDICATIONS: Reviewed home medication list SOCIAL HISTORY: Lives by herself, non-smoker Allergies Allergy/AdvReac Type Severity Reaction Status Date / Time Iodinated Contrast Media Allergy Unknown Unknown rxn Verified 10/28/19 14:42 iodine Allergy Unknown unknown Verified 10/28/19 14:42 shellfish derived Allergy Unknown SHRIMP Verified 10/28/19 14:42 ALLERGY Sulfa (Sulfonamide AdvReac Severe N&V, [place], Verified 10/28/19 14:42 Antibiotics) body aches, cough lisinopril AdvReac Unknown COUGH Verified 11/29/19 17:01 diflunisal [From Dolobid] AdvReac Unknown Verified 11/29/19 15:50 Home Medications Home Medications Medication Instructions Recorded Confirmed Type albuterol sulfate 2.5 mg CONTINUOUS NEBULIZATION Q6H 08/04/18 11/29/19 History #1 ml albuterol sulfate 90 mcg/actuation 2 puffs INHALATION Q6H PRN gm 08/04/18 11/29/19 History aerosol inhaler budesonide-formoterol HFA 160 2 puffs INHALATION Q12H #1 gm 08/04/18 11/29/19 History mcg-4.5 mcg/actuation aerosol inhaler mometasone 50 mcg/actuation nasal 1 sprays INTRANASAL DAILY gm 08/04/18 11/29/19 History spray isosorbide mononitrate 10 mg tablet 10 mg PO TID #270 tab 09/23/18 11/29/19 Rx aspirin 325 mg tablet 325 mg PO DAILY tab 11/26/18 11/29/19 History metoprolol tartrate 50 mg tablet 75 mg PO BID #270 tabs 12/06/18 11/29/19 Rx metformin 500 mg tablet 500 mg PO DAILY #90 tab 01/25/19 11/29/19 Rx omeprazole 20 mg capsule,delayed 20 mg PO DAILY #90 cap 07/21/19 11/29/19 Rx release cyanocobalamin (vitamin B-12) 1,000 mcg SL DAILY tab 09/09/19 11/29/19 History 1,000 mcg sublingual tablet nitroglycerin 0.4 mg sublingual 0.4 mg SL .COMPLEX PRN tab 09/09/19 11/29/19 History tablet atorvastatin 40 mg tablet 40 mg PO DAILY #90 tab 10/19/19 11/29/19 Rx calcium carbonate 600 mg (1,500 1 cap PO DAILY cap 10/28/19 11/29/19 History mg)-vitamin D3 500 unit capsule latanoprost 1 drp OPB HS 11/29/19 11/29/19 History ondansetron HCl 4 mg tablet 4 mg PO Q6H PRN #60 tab 11/29/19 11/29/19 Rx Patient History Medical History (Updated 11/29/19 @ 17:08 by Zachary Randhawa MD) CAD in [place] artery Carotid atherosclerosis Chronic cerebral ischemia Coronary artery disease Diabetes mellitus type 2, controlled GERD (gastroesophageal reflux disease) Hyperlipidemia Hypertension [place] (myocardial infarction) Nausea Osteopenia Polyp, sigmoid colon Surgical History History of cardiac catheterization History of colonoscopy July 2019 History of coronary artery stent placement History of tonsillectomy S/P total hysterectomy and bilateral salpingo-oophorectomy S/P tubal ligation Family History Father Myocardial infarction Cardiac disorder Mother Cardiac disorder Sister Cardiac disorder Denies family history of Ovarian cancer Prostate cancer Breast cancer Colorectal cancer Social History Smoking Status: Never smoker Hx Alcohol Use: No Hx Substance Use: No Preferred Language: Russian Communication Ability: Effective marital status: Current Living Situation: Spouse current occupational status: retired Feels Safe at Home: Yes Dental Care, Regularly: Yes Physical Activity Frequency: Daily Physical Activity Frequency Comment: yardwork and walking Seatbelt Use: always Sunscreen Use: Yes Review of Systems Review of Systems: All systems reviewed & are unremarkable except as noted in HPI & below Constitutional: as per Subjective / HPI Eyes: as per Subjective / HPI Ear, Nose, Mouth, Throat: as per Subjective / HPI Respiratory: as per Subjective / HPI Cardiovascular: as per Subjective / HPI Additional Comments: CAD, HTN, [place] 4 years ago, one cardiac stent place, pt saw her residential assistant last month, she was told her heart was Okay. carotic stenosis Gastrointestinal: as per Subjective / HPI GERD Genitourinary: as per Subjective / HPI dysuria, UTI Musculoskeletal: as per Subjective / HPI Integumentary: as per Subjective / HPI Neurologic: as per Subjective / HPI chronic cerebral ischemia Psychiatric: as per Subjective / HPI Endocrine: as per Subjective / HPI DM Hematologic / Lymphatic: as per Subjective / HPI Allergy / Immunological: as per Subjective / HPI Physical Exam Constitutional: WD/WN, vitals as above well developed, well nourished, + acute distress and + ill appearing Eyes: PERRL, conjunctivae normal, anicteric sclerae ENMT: external ear and nose normal, oropharynx normal Neck: trachea midline, no thyromegaly Respiratory: normal respiratory effort, lungs clear to auscultation Cardiovascular: RRR, no murmur, no edema Rate/Rhythm: regular rate and regular rhythm Heart Sounds: normal S1 and normal S2 Gastrointestinal (Abdomen): Percussion/Palpation: + abdomen tender and + guarding mild distend, significant tenderness at RUQ with rebound pain and palpable mass on RUQ, BS + Musculoskeletal: no cyanosis or clubbing, extremities motor strength 5/5 Skin: no rashes, warm and dry Neurologic: patellar DTR's 2+ bilat, sensation intact Psychiatric: Orientation: alert and oriented x 3 Results & Data ([facility]) Vital Signs (Past 12 Hours) Vital Signs Temp Pulse Pulse Resp BP BP Pulse Ox 11/29/19 15:01 94 11/29/19 14:59 62 16 146/91 H 93 11/29/19 14:14 68 16 166/81 H 90 11/29/19 13:07 37.1 C 59 L 18 152/100 H 95 Laboratory Results Abnormal lab results 11/29/19 11/29/19 Range/Units 14:00 14:00 WBC 13.50 H (4.8-10.8) K/uL RDW Std Deviation 49.0 H (36.4-46.3) fL MPV 10.8 H (7.4-10.4) fL Neut # (Auto) 11.60 H (1.4-6.5) K/uL Lymph # (Auto) 1.01 L (1.2-3.4) K/uL [place] # (Auto) 0.82 H (0.11-0.59) K/uL Immature Gran # (Auto) 0.03 H (0.00-0.02) K/uL Glucose 138 H (70-99) mg/dl AST 14 L (15-37) U/L Diagnostic Findings CT OF THE ABDOMEN AND PELVIS WITHOUT CONTRAST CLINICAL HISTORY: Nausea, vomiting and abdominal pain. COMPARISON STUDY: CT of the chest, abdomen and pelvis May 10, 2013. TECHNIQUE: Axial images of the abdomen and pelvis were obtained without IV contrast. Images were reviewed in the axial, sagittal, and coronal planes. Automated exposure control was utilized for the study. A dose lowering technique was utilized adhering to the principles of ALARA. FINDINGS: A trace right pleural effusion is noted. No pneumatosis, free air or portal venous gas is present. Note is made of a small amount of gas likely within the gallbladder wall. There is also gas within the cystic duct and a small amount of pneumobilia within the left hepatic lobe. Gallbladder is mildly distended. There is mild pericholecystic infiltration. There are stones within the gallbladder. There is a 7 mm stone likely within the gallbladder neck or cystic duct. There is mild dilatation of the common bile duct. There is a probable diverticulum of the second portion the duodenum. Evaluation of the abdomen and pelvis is suboptimal on this unenhanced exam. The spleen, adrenal glands, kidneys and pancreas are normal. Is no hydronephrosis. There is trace fluid within the pelvis. There is colonic diverticulosis without evidence for acute diverticulitis. The appendix is unremarkable. There are no suspicious osseous lesions. IMPRESSION: 1. Cholelithiasis, including a stone within the gallbladder neck or cystic duct. Mild gallbladder distention and adjacent infiltration. These findings suggest acute cholecystitis. In addition, small amount of gas likely within the gallbladder wall as well as pneumobilia. These findings suggest emphysematous cholecystitis. Findings discussed with Dr. Borges at time of dictation. 2. Mild biliary ductal dilatation which be correlated with liver function tests. 3. No bowel obstruction. Normal appendix.
[2019-11-29] MEDS ORDERED: LACTATED RINGER'S 1,000 ML IV SCH (17:00)
[2019-11-29] MEDS ORDERED: HYDROmorphone INJ 0.5 MG/0.5 ML SYR IV PRN (17:01)
[2019-11-29] MEDS ORDERED: BUPIVACAINE 0.5 % 5 MG/1 ML MPF 30ML VIAL ONE (17:05)
[2019-11-29] MEDS ORDERED: LIDOCAINE HCL 1% 20 ML VIAL ONE (17:05)
[2019-11-29] MEDS ORDERED: BACITRACIN OINT 15 GM TUBE ONE (17:05)
--- NOTE | 2019-11-29 17:13 | History & Physical Bridge Note ---
Date of Service November 29, 2019 History & Physical Bridge Note I have examined the patient, reviewed the History & Physical and in the interval since the performance of the History & Physical I have noted the following changes of clinical significance: no changes noted
[2019-11-29] MEDS ORDERED: ONDANSETRON INJ 2 MG/ML 2 ML VIAL ONE (17:47)
[2019-11-29] MEDS ORDERED: ROCURONIUM BROMIDE 10 MG/ML 5 ML VIAL IV ONE (17:47)
[2019-11-29] MEDS ORDERED: PROPOFOL IV EMULSION 10 MG/ML 20 ML VIAL IV ONE (17:47)
[2019-11-29] MEDS ORDERED: LIDOCAINE HCL 2% 2 ML VIAL/AMP(20MG/ML) INFIL ONE (17:47)
[2019-11-29] MEDS ORDERED: MIDAZOLAM HCL 1 MG/ML 2ML VIAL ONE (17:48)
[2019-11-29] MEDS ORDERED: fentaNYL citrate 100 MCG/2 ML VIAL ONE ×2 (17:48→18:43)
--- NOTE | 2019-11-29 17:53 | Anesthesiology Consultation ---
Date of Service November 29, 2019 Assessment & Plan Chart Review Chart Review: Acceptable Risk for Surgery Consults Requested none History Surgery Operation Date: 11/29/19 13:20 Proposed Procedures p Laparoscopic Cholecystectomy - Zachary Randhawa MD Height/Weight Height: 5 ft 1 in Allergies Allergy/AdvReac Type Severity Reaction Status Date / Time Iodinated Contrast Media Allergy Unknown Unknown rxn Verified 10/28/19 14:42 iodine Allergy Unknown unknown Verified 10/28/19 14:42 shellfish derived Allergy Unknown SHRIMP Verified 10/28/19 14:42 ALLERGY Sulfa (Sulfonamide AdvReac Severe N&V, [place], Verified 10/28/19 14:42 Antibiotics) body aches, cough lisinopril AdvReac Unknown COUGH Verified 11/29/19 17:01 diflunisal [From Dolobid] AdvReac Unknown Verified 11/29/19 15:50 Medications Home Medications Medication Instructions Recorded Confirmed Last Taken albuterol sulfate 2.5 mg CONTINUOUS NEBULIZATION Q6H 08/04/18 11/29/19 Unknown #1 ml albuterol sulfate 90 mcg/actuation 2 puffs INHALATION Q6H PRN gm 08/04/1811/28 Unknown aerosol inhaler budesonide-formoterol HFA 160 2 puffs INHALATION Q12H #1 gm 08/04/18 11/29/19 Unknown mcg-4.5 mcg/actuation aerosol inhaler mometasone 50 mcg/actuation nasal 1 sprays INTRANASAL DAILY gm 08/04/18 11/29/19 Unknown spray isosorbide mononitrate 10 mg tablet 10 mg PO TID #270 tab 09/23/18 11/29/19 Unknown aspirin 325 mg tablet 325 mg PO DAILY tab 11/26/18 11/29/19 Unknown metoprolol tartrate 50 mg tablet 75 mg PO BID #270 tabs 12/06/18 11/29/19 Unknown metformin 500 mg tablet 500 mg PO DAILY #90 tab 01/25/19 11/29/19 Unknown omeprazole 20 mg capsule,delayed 20 mg PO DAILY #90 cap 07/21/19 11/29/19 Unknown release cyanocobalamin (vitamin B-12) 1,000 mcg SL DAILY tab 09/09/19 11/29/19 Unknown 1,000 mcg sublingual tablet nitroglycerin 0.4 mg sublingual 0.4 mg SL .COMPLEX PRN tab 09/09/19 11/29/19 Unknown tablet atorvastatin 40 mg tablet 40 mg PO DAILY #90 tab 10/19/19 11/29/19 Unknown calcium carbonate 600 mg (1,500 1 cap PO DAILY cap 10/28/19 11/29/19 Unknown mg)-vitamin D3 500 unit capsule latanoprost 1 drp OPB HS 11/29/19 11/29/19 Unknown ondansetron HCl 4 mg tablet 4 mg PO Q6H PRN #60 tab 11/29/19 11/29/19 Unknown NPO Date Last Intake of Fluids: 11/29/19 Time Last Intake of Fluids: 09:00 Date Last Intake of Solids: 11/28/19 Time Last Intake of Solids: 12:00 Past Medical History Medical History CAD in [place] artery Carotid atherosclerosis Chronic cerebral ischemia Coronary artery disease Diabetes mellitus type 2, controlled GERD (gastroesophageal reflux disease) Hyperlipidemia Hypertension [place] (myocardial infarction) Nausea Osteopenia Polyp, sigmoid colon Past Family History Family History Father Myocardial infarction Cardiac disorder Mother Cardiac disorder Sister Cardiac disorder Denies family history of Ovarian cancer Prostate cancer Breast cancer Colorectal cancer Past Surgical History Surgical History History of cardiac catheterization History of colonoscopy July 2019 History of coronary artery stent placement History of tonsillectomy S/P total hysterectomy and bilateral salpingo-oophorectomy S/P tubal ligation Social History Smoking Status: Never smoker Do You Dip or Chew Tobacco: No Hx Alcohol Use: Yes Alcohol type: wine alcohol intake frequency: holidays/special occasions only Hx Substance Use: No substance use type: does not use Physical Exam Vital Signs Last Vital Signs Temp 36.7 C 11/29/19 17:33 Pulse 88 11/29/19 17:33 Resp 18 11/29/19 17:33 BP 154/70 H 11/29/19 17:33 Pulse Ox 94 11/29/19 17:33 Testing Laboratory Results 11/29/19 14:00 11/29/19 14:00 PT 10.6 Seconds (9.0-12.0) 11/29/19 14:00 INR 1.0 (0.9-1.1) 11/29/19 14:00 11/29/19 17:35 POC Glucose 138 H
[2019-11-29] MEDS ORDERED: METOCLOPRAMIDE HCL INJ 5 MG/ML 2 ML VIAL IV PRN (17:55)
[2019-11-29] MEDS ORDERED: ATROPINE SULFATE 0.1 MG/ML 10ML SYR IV PRN (17:55)
[2019-11-29] MEDS ORDERED: PROMETHAZINE HCL 12.5 MG in SODIUM CHLORIDE 0.9% 50 ML IV PRN (17:55)
[2019-11-29] MEDS ORDERED: ONDANSETRON INJ 2 MG/ML 2 ML VIAL IV PRN ×2 (17:55→21:14)
[2019-11-29] MEDS ORDERED: ePHEDrine sulfate 50 MG/ML AMP IV PRN (17:55)
[2019-11-29] MEDS ORDERED: HYDROmorphone INJ 2 MG/ML SYR/VIAL IV PRN (17:55)
[2019-11-29] MEDS ORDERED: fentaNYL citrate 100 MCG/2 ML VIAL IV PRN (17:55)
--- NOTE | 2019-11-29 20:37 | Anesthesiology Progress Note ---
Date of Service November 29, 2019 Anesthesia Post Procedure Vital Signs Vital Signs: Temp Pulse Pulse Pulse Resp BP BP 11/29/19 20:30 85 20 131/73 11/29/19 20:25 93 H 18 127/70 11/29/19 20:20 37.1 C 89 20 143/75 H 11/29/19 20:15 77 18 144/78 H 11/29/19 20:10 93 H 20 143/75 H 11/29/19 20:05 36.9 C 88 20 140/75 11/29/19 17:33 36.7 C 88 18 154/70 H 11/29/19 17:00 71 17 169/77 H 11/29/19 16:30 70 22 161/86 H 11/29/19 16:00 67 21 176/75 H 11/29/19 15:30 82 18 170/98 H 11/29/19 15:23 83 29 H 11/29/19 15:01 11/29/19 15:00 75 22 157/72 H 11/29/19 14:59 62 16 146/91 H 11/29/19 14:14 68 16 166/81 H 11/29/19 13:07 37.1 C 59 L 18 152/100 H Pulse Ox 11/29/19 20:30 95 11/29/19 20:25 92 11/29/19 20:20 95 11/29/19 20:15 99 11/29/19 20:10 100 11/29/19 20:05 100 11/29/19 17:33 94 11/29/19 17:00 99 11/29/19 16:30 100 11/29/19 16:00 100 11/29/19 15:30 11/29/19 15:23 97 11/29/19 15:01 94 11/29/19 15:00 97 11/29/19 14:59 93 11/29/19 14:14 90 11/29/19 13:07 95 Pain Intensity Abdomen: Pain Intensity: 5 Transfer of Care Handoff Completed per policy Notes Mental Status: alert / awake / arousable and participated in evaluation Patient Amnestic to Procedure: Yes Nausea / Vomiting: adequately controlled Pain: adequately controlled Airway Patency, RR, SpO2: stable & adequate BP & HR: stable & adequate Hydration State: stable & adequate Anesthetic Complications: no major complications apparent and Pt Satisfied with anesthetic care
[2019-11-29 20:45] LABS: Appearance Urine Turbid (Clear); Bacteria Urine Automated Negative (Negative); Bilirubin Urine Negative (Negative); Blood Urine 1+ (Negative); Color Urine Yellow; Epithelial Cell Urine Auto >30 /lpf (0-5); Glucose Urine UA Negative (Negative); Ketones Urine Trace (Negative); Leukocyte Esterase Urine Negative (Negative); Nitrite Urine Negative (Negative); Protein Urine Trace (Negative); RBC Urine Automated 0-4 /hpf (0-4); Specific Gravity Urine 1.019 (1.000-1.030); Urobilinogen Urine Negative (Negative); pH Urine 5.5 (4.5-7.5)
[2019-11-29 20:55] LABS: Renal Epithelial Cells Urine 0-5 /lpf (0-5)
[2019-11-29] MEDS ORDERED: NITROGLYCERIN SL 0.4 MG/TAB TAB SL PRN (21:14)
[2019-11-29] MEDS ORDERED: PHARMACY GLYCEMIC MGMT CONSULT PRN (22:03)
[2019-11-29] MEDS: METOPROLOL TARTRATE 25 MG TAB PO SCH (22:18)
[2019-11-29] MEDS: LATANOPROST 0.005% OP SOLN 2.5 ML BTL OPB SCH (22:18)
[2019-11-29] MEDS: ACETAMINOPHEN 1,000 MG/100 ML VIAL IV PRN (22:19)
[2019-11-29] MEDS: LACTATED RINGER'S 1,000 ML IV SCH (22:19)
[2019-11-29] MEDS: PATIENT'S HEIGHT AND/OR WEIGHT NEEDED SCH ×2 (22:23→22:35)
[2019-11-29] MEDS ORDERED: PIPERACILLIN/TAZOBACTAM 3.375 GM in DEXTROSE 5% 100 ML IV ONE (23:00)
[2019-11-29] MEDS ORDERED: GLUCOSE 10 TABS/TUBE PO PRN (23:17)
[2019-11-29] MEDS ORDERED: GLUCAGON FOR INJ 1 MG VIAL SQ PRN (23:17)
[2019-11-29] MEDS ORDERED: GLUCOSE 40% GEL 15 GM TUBE PO PRN (23:17)
[2019-11-29] MEDS ORDERED: DEXTROSE 50% 50 ML SYRINGE IV PRN (23:17)
[2019-11-29] MEDS ORDERED: CARBOHYDRATES FOR HYPOGLYCEMIA PO PRN (23:17)
--- NOTE | 2019-11-30 01:47 | Operative Report (OR) ---
DATE OF OPERATION: 11/29/2019 PREOPERATIVE DIAGNOSES: Acute cholecystitis with cholelithiasis, emphysema, gallbladder. POSTOPERATIVE DIAGNOSES: Acute cholecystitis with gangrene gallbladder. OPERATION: Laparoscopic cholecystectomy, JAMA drainage x1. SURGEON: Zachary Randhawa MD. ANESTHESIA: General. ESTIMATED BLOOD LOSS: About 20 mL. FINDINGS: Significant gangrene acute cholecystitis with cholelithiasis. COMPLICATIONS: None. INDICATIONS FOR THE PROCEDURE: This is a 69-year-old female who presented to the ED with 3 days history of right upper quadrant pain. The patient had a CT scan diagnosis of acute cholecystitis with emphysema, recommended to do the laparoscopic cholecystectomy, possible open, possible cholangiogram. I did talk to the patient about the benefit, the risk, alternate procedure. I indicated the risks may include but not limited such as bleeding, infection, injury to common bile duct, sepsis, myocardial infarction, DVT, stroke, even . The patient understands. She signed informed consent and I answered all questions. DETAILS OF PROCEDURE: We brought the patient to the OR, put the patient in the supine position. The patient received SCD on bilateral legs to prevent DVT and also the patient received 3.375 grams Zosyn IV for prophylactic antibiotic. The patient received general anesthesia without difficulty. The abdomen was prepped and draped in routine sterile fashion. After time-out, I injected local anesthesia by using 1% lidocaine mixed with 0.5% Marcaine just above the umbilicus, then made a small incision just above umbilicus, opened fascia and opened peritoneum under direct vision, put a Dave trocar in, connected to CO2 to create pneumoperitoneum. Flow rate is 6 liters per minute. Pressure not more than 14 mmHg. Once again, a nice pneumoperitoneum, we put the camera in, looked around the abdomen, shows normal finding on the liver. However, the gallbladder, significant gangrene gallbladder wall thickening, edema, confirmed diagnosis gangrene cholecystitis, significant distention. Then, we put another two 5 mm trocars on the right upper quadrant, one 12 trocar on the epigastric area and we used a large needle to decompress the gallbladder first. Then, we used the grasper to hold the base of gallbladder, put in the direction to the diaphragm, another grasper to hold the pouch of gallbladder, put the latter to expose the triangle of Calot. The cystic duct was identified and mobilized. The cystic duct has significant dilatation about 1 cm. We used 10 mm metal clips on the proximal cystic duct x2 and on the distal cystic duct. I then used scissor for transection of the cystic duct and rechecked and no bile leak. The cystic artery was identified and mobilized. I put 10 mm metal clips on the proximal cystic artery around the distal cystic artery and used the scissor for transection of cystic artery. Rechecked, no active bleeding. Then we used the Bovie to take down gallbladder from the liver bed. Rechecked and no active bleeding, no bile leak from the liver bed. Then we removed the gallbladder through the catch bag. Then we reinserted Dave trocar in, connected to CO2 to create pneumoperitoneum, again looked around the abdomen, no active bleeding, no bile leak from the liver bed. Based on significant gangrene gallbladder, I decided to put one 10 mm JAMA drainage in through the 5 mm trocar. Then we used a 3-0 nylon, fixed the JAMA drain on the skin. Then we removed all trocar under direct vision. Pneumoperitoneum was released. No active bleeding from the trocar site. Then we closed the umbilical incision, fascial layer by using 0 Vicryl [id number] x2, closed subcutaneous layer by using 2-0 Vicryl interruptedly, closed skin by using 4-0 Vicryl continuous running, closed the epigastric area and 12 trocar incision, fascial layer by using 0 Vicryl [id number] x2, closed subcutaneous layer by using 2-0 Vicryl interruptedly, closed skin by using 4-0 Vicryl interruptedly, closed another two 5 mm trocar site skin only by using 4-0 Vicryl. Then, we put the dressing on. The patient tolerated the procedure well. All instrument, needle and sponge count were correct x2 at the end of the case. The patient transferred to recovery room in stable condition. After the procedure, I did talk to the patient and family member about the OR finding and the procedure we did. Her son understands. The specimen sent to pathology. I attest to the content of the Intraoperative Record and any orders documented therein. Any exception s are noted below.
[2019-11-30] MEDS ORDERED: OXYCODONE/APAP 7.5/325MG TAB PO ONE (03:21)
[2019-11-30] MEDS: PIPERACILLIN/TAZOBACTAM 3.375 GM in DEXTROSE 5% 100 ML IV SCH ×3 (03:40→21:01)
[2019-11-30 06:22] LABS: Basophils # (auto) 0.02 K/uL (0-0.2); Basophils % (auto) 0.2 %; Eosinophils # (auto) 0.02 K/uL (0-0.5); Eosinophils % (auto) 0.2 %; Hematocrit (blood only) 33.9 % (37-47); Immature Granulocytes # (auto) 0.02 K/uL (0.00-0.02); Immature Granulocytes % (auto) 0.2 %; Lymphocytes # (auto) 1.86 K/uL (1.2-3.4); Lymphocytes % (auto) 15.6 %; Mean Corpuscular Hemoglobin 30.1 pg (25-34); Mean Corpuscular Hgb Conc 32.4 g/dL (32-36); Mean Corpuscular Volume 92.6 fL (80-100); Mean Platelet Volume 10.9 fL (7.4-10.4); Monocytes # (auto) 1.63 K/uL (0.11-0.59); Monocytes % (auto) 13.7 %; Neutrophils # (auto) 8.35 K/uL (1.4-6.5); Neutrophils % (auto) 70.1 %; Platelet Count 207 K/uL (130-400); RDW Coefficient of Variation 14.4 % (11.5-14.5); Red Blood Count 3.66 M/uL (4.2-5.4)
[2019-11-30 06:54] LABS: Albumin Level 2.6 gm/dl (3.4-5.0); Calcium 8.3 mg/dl (8.5-10.1); Creatinine Clr Calc Pharmacy 80.1 ml/min; Est GFR (African American) 109.5; Est GFR (Non-African American) 94.5; Potassium 3.6 mmol/L (3.5-5.1)
[2019-11-30 06:59] LABS: Albumin Globulin Ratio 0.8 (0.9-2); Globulin 3.1 gm/dl (2.5-4.0); Total Protein 5.7 gm/dl (6.4-8.2)
--- NOTE | 2019-11-30 07:26 | Surgery Progress Note ---
Date of Service November 30, 2019 Assessment & Plan (1) Cholelithiasis and acute cholecystitis with obstruction: advance diet continue IV abx ambulate Admission and Anticipated Discharge Date Admission Date: November 29, 2019 Subjective no complaints taking po OK ambulated JAMA with minimal drainage Review of Systems Constitutional: no fever and no chills Respiratory: no dyspnea Cardiovascular: no chest pain Gastrointestinal: + abdominal pain; no nausea, no vomiting and no change in bowel habits Genitourinary: no dysuria Musculoskeletal: no back pain and no neck pain Physical Exam Constitutional: well developed and well nourished Neck: trachea midline Respiratory: normal respiratory effort, lungs clear to auscultation Cardiovascular: RRR, no murmur, no edema Gastrointestinal (Abdomen): Inspection/Auscultation: abdomen normal to inspection, + abdomen distended and normal bowel sounds Percussion/Palpation: + abdomen tender Musculoskeletal: Head/Neck/Chest: normocephalic and head atraumatic Skin: no rashes, warm and dry Results & Data ([facility]) Vital Signs (Past 12 Hours) Vital Signs Temp Pulse Pulse Resp BP BP Pulse Ox 11/30/19 05:41 37.2 C 70 14 92 11/30/19 04:01 37.5 C 64 18 128/75 97 11/29/19 23:55 36.8 C 73 14 130/67 96 11/29/19 22:57 37.3 C 91 H 18 122/70 94 11/29/19 22:11 37.3 C 88 16 134/77 921 H 11/29/19 21:35 37.7 C H 88 16 138/76 91 11/29/19 21:00 37.9 C H 84 16 128/65 96 11/29/19 20:50 37 C 79 18 140/73 96 11/29/19 20:40 86 20 130/90 96 11/29/19 20:35 82 21 133/71 94 11/29/19 20:30 85 20 131/73 95 11/29/19 20:25 93 H 18 127/70 92 11/29/19 20:20 37.1 C 89 20 143/75 H 95 11/29/19 20:15 77 18 144/78 H 99 11/29/19 20:10 93 H 20 143/75 H 100 11/29/19 20:05 36.9 C 88 20 140/75 100
[2019-11-30] MEDS: ACETAMINOPHEN 1,000 MG/100 ML VIAL IV PRN (07:54)
[2019-11-30] MEDS: ASPIRIN 81 MG ECTAB PO SCH (07:59)
[2019-11-30] MEDS: ATORVASTATIN 40 MG TAB PO SCH (07:59)
[2019-11-30] MEDS: PANTOprazole 40 MG TAB PO SCH (08:00)
[2019-11-30] MEDS: ISOSORBIDE MONONITRATE 20 MG TAB PO SCH ×3 (08:00→21:24)
[2019-11-30] MEDS: CALCIUM 600MG + VIT D 400 IU TAB PO SCH (08:00)
[2019-11-30] MEDS: FLUTICASONE/VILANTEROL 200/25MCG 14 PUFFS/INHALER INH SCH (08:00)
[2019-11-30] MEDS: METOPROLOL TARTRATE 25 MG TAB PO SCH ×2 (08:00→21:24)
[2019-11-30] MEDS: FLUTICASONE PROPIONATE NA SPR 16 GM BTL SCH (08:01)
[2019-11-30] MEDS: INSULIN ASPART 100 UNITS/ML 3 ML PEN SC SCH ×4 (09:56→22:06)
[2019-11-30] MEDS: LACTATED RINGER'S 1,000 ML IV SCH ×2 (10:15→21:28)
[2019-11-30] MEDS: ENOXAPARIN INJ 40 MG/0.4 ML SYR SQ SCH (10:16)
[2019-11-30] MEDS ORDERED: OXYCODONE/APAP 7.5/325MG TAB PO PRN (11:18)
--- NOTE | 2019-11-30 11:48 | Hospitalist Progress Note ---
Date of Service November 30, 2019 Assessment & Plan (1) Acute cholecystitis: acute choleycystitis with gangrene s/p lap todd on 11/28, tolerated well, no acute issues overnight Hb stable, WBC goind down, no fever continue Zosyn IV diet advanced, encourage to ambulate likely home tomorrow if okay with general surgery (2) Diabetes mellitus type 2, controlled: hold Metformin Novolog SS monitor for hypoglycemia (3) Coronary artery disease: no chest pain or pressure post op BP low normal continue aspirin metoprolol, Imdur (4) Hypertension: BP low normal (5) Hyperlipidemia: Lipitor (6) GERD (gastroesophageal reflux disease): no reflux symptoms continue PPI Admission and Anticipated Discharge Date Admission Date: November 29, 2019 Subjective patient doing well after surgery yesterday, no acute issues, pain was controlled with Percocet she is eating, no nausea/vomiting + flatus, no BM yet, she is voiding on her own appreciate surgery note labs reviewed, WBC down to 11k, Hb is stable, Cr and electrolytes stable discussed with her and family that likely home tomorrow Review of Systems Review of Systems: All systems reviewed & are unremarkable except as noted in Subjective Constitutional: no fever, no chills, no sweats, no fatigue and no weakness Respiratory: no cough and no dyspnea Cardiovascular: no chest pain and no edema Gastrointestinal: + abdominal pain (RUQ); no nausea, no vomiting, no constipation and no diarrhea/loose stools Physical Exam Constitutional: WD/WN, vitals as above Neck: trachea midline, no thyromegaly Respiratory: normal respiratory effort, lungs clear to auscultation Cardiovascular: RRR, no murmur, no edema Gastrointestinal (Abdomen): Inspection/Auscultation: normal bowel sounds, + abdominal surgical incision (C/D/I) and + abdominal surgical drain present (JAMA from RUQ, serosanguinous fluid); abdomen not distended Percussion/Palpation: + abdomen tender (RUQ), abdomen soft and + tympanic to percussion; no guarding and abdomen not rigid Musculoskeletal: no cyanosis or clubbing, extremities motor strength 5/5 Skin: no rashes, warm and dry Neurologic: patellar DTR's 2+ bilat, sensation intact and PERRL, EOMI, accommodation nl, no face palsy, no dysarthria Psychiatric: A+Ox3, euthymic affect Lymphatic: no cervical or axillary lymphadenopathy Results & Data Results & Data ([facility]) Vital Signs (Past 12 Hours) Vital Signs Temp Pulse Resp BP BP Pulse Ox 11/30/19 08:39 36.8 C 62 18 91/51 L 91 11/30/19 05:41 37.2 C 70 14 92 11/30/19 04:01 37.5 C 64 18 128/75 97 11/29/19 23:55 36.8 C 73 14 130/67 96 Laboratory Results Laboratory Results - last 24 hr 11/29/19 11/29/19 11/29/19 14:00 14:00 14:00 WBC 13.50 H RBC 4.36 Hgb 13.4 Hct 40.3 MCV 92.4 MCH 30.7 MCHC 33.3 RDW Std Deviation 49.0 H RDW Coeff of Rahul 14.3 Plt Count 235 MPV 10.8 H Immature Gran % (Auto) 0.2 Neut % (Auto) 86.0 Lymph % (Auto) 7.5 [place] % (Auto) 6.1 Eos % (Auto) 0.1 Baso % (Auto) 0.1 Neut # (Auto) 11.60 H Lymph # (Auto) 1.01 L [place] # (Auto) 0.82 H Eos # (Auto) 0.02 Baso # (Auto) 0.02 Immature Gran # (Auto) 0.03 H PT 10.6 INR 1.0 Sodium 139 Potassium 3.5 Chloride 105 Carbon Dioxide 27 Anion Gap 7.0 BUN 7 Creatinine 0.73 Est Cr Clr Drug Dosing Not Reportable Est GFR ( Amer) 96.7 Est GFR (Non-Af Amer) 83.4 BUN/Creatinine Ratio 10.2 Glucose 138 H POC Glucose Lactate Calcium 9.7 Magnesium 2.1 Total Bilirubin 0.7 AST 14 L ALT 26 Alkaline Phosphatase 95 Troponin I < 0.015 Total Protein 7.6 Albumin 3.7 Globulin 3.9 Albumin/Globulin Ratio 0.9 Lipase 83 TSH 0.948 Urine Color Urine Appearance Urine pH Ur Specific [place] Urine Protein Urine Glucose (UA) Urine Ketones Urine Blood Urine Nitrite Urine Bilirubin Urine Urobilinogen Ur Leukocyte Esterase Urine WBC (Auto) Urine RBC (Auto) U Hyaline Cast (Auto) U Epithel Cells (Auto) Urine Bacteria (Auto) Ur Renal Epithelial Cell COVID-19 Eval Order COVID-19 PCR Influ A Molecular Assay Influ B Molecular Assay 11/29/19 11/29/19 11/29/19 14:00 14:10 14:10 WBC RBC Hgb Hct MCV MCH MCHC RDW Std Deviation RDW Coeff of Rahul Plt Count MPV Immature Gran % (Auto) Neut % (Auto) Lymph % (Auto) [place] % (Auto) Eos % (Auto) Baso % (Auto) Neut # (Auto) Lymph # (Auto) [place] # (Auto) Eos # (Auto) Baso # (Auto) Immature Gran # (Auto) PT INR Sodium Potassium Chloride Carbon Dioxide Anion Gap BUN Creatinine Est Cr Clr Drug Dosing Est GFR ( Amer) Est GFR (Non-Af Amer) BUN/Creatinine Ratio Glucose POC Glucose Lactate 1.6 Calcium Magnesium Total Bilirubin AST ALT Alkaline Phosphatase Troponin I Total Protein Albumin Globulin Albumin/Globulin Ratio Lipase TSH Urine Color Urine Appearance Urine pH Ur Specific [place] Urine Protein Urine Glucose (UA) Urine Ketones Urine Blood Urine Nitrite Urine Bilirubin Urine Urobilinogen Ur Leukocyte Esterase Urine WBC (Auto) Urine RBC (Auto) U Hyaline Cast (Auto) U Epithel Cells (Auto) Urine Bacteria (Auto) Ur Renal Epithelial Cell COVID-19 Eval Order Covid19 Done at [facility] COVID-19 PCR Influ A Molecular Assay Negative Influ B Molecular Assay Negative 11/29/19 11/29/19 11/29/19 14:10 17:35 20:07 WBC RBC Hgb Hct MCV MCH MCHC RDW Std Deviation RDW Coeff of Rahul Plt Count MPV Immature Gran % (Auto) Neut % (Auto) Lymph % (Auto) [place] % (Auto) Eos % (Auto) Baso % (Auto) Neut # (Auto) Lymph # (Auto) [place] # (Auto) Eos # (Auto) Baso # (Auto) Immature Gran # (Auto) PT INR Sodium Potassium Chloride Carbon Dioxide Anion Gap BUN Creatinine Est Cr Clr Drug Dosing Est GFR ( Amer) Est GFR (Non-Af Amer) BUN/Creatinine Ratio Glucose POC Glucose 138 H 128 H Lactate Calcium Magnesium Total Bilirubin AST ALT Alkaline Phosphatase Troponin I Total Protein Albumin Globulin Albumin/Globulin Ratio Lipase TSH Urine Color Urine Appearance Urine pH Ur Specific [place] Urine Protein Urine Glucose (UA) Urine Ketones Urine Blood Urine Nitrite Urine Bilirubin Urine Urobilinogen Ur Leukocyte Esterase Urine WBC (Auto) Urine RBC (Auto) U Hyaline Cast (Auto) U Epithel Cells (Auto) Urine Bacteria (Auto) Ur Renal Epithelial Cell COVID-19 Eval Order COVID-19 PCR NEGATIVE Influ A Molecular Assay Influ B Molecular Assay 11/29/19 11/30/19 11/30/19 20:30 05:24 05:24 WBC 11.90 H RBC 3.66 L Hgb 11.0 L Hct 33.9 L MCV 92.6 MCH 30.1 MCHC 32.4 RDW Std Deviation 49.0 H RDW Coeff of Rahul 14.4 Plt Count 207 MPV 10.9 H Immature Gran % (Auto) 0.2 Neut % (Auto) 70.1 Lymph % (Auto) 15.6 [place] % (Auto) 13.7 Eos % (Auto) 0.2 Baso % (Auto) 0.2 Neut # (Auto) 8.35 H Lymph # (Auto) 1.86 [place] # (Auto) 1.63 H Eos # (Auto) 0.02 Baso # (Auto) 0.02 Immature Gran # (Auto) 0.02 PT INR Sodium 142 Potassium 3.6 Chloride 109 H Carbon Dioxide 30 Anion Gap 3.0 BUN 7 Creatinine 0.56 L Est Cr Clr Drug Dosing 80.1 Est GFR ( Amer) 109.5 Est GFR (Non-Af Amer) 94.5 BUN/Creatinine Ratio 12.0 Glucose 94 POC Glucose Lactate Calcium 8.3 L Magnesium Total Bilirubin 1.0 AST 18 ALT 24 Alkaline Phosphatase 70 Troponin I Total Protein 5.7 L D Albumin 2.6 L Globulin 3.1 Albumin/Globulin Ratio 0.8 L Lipase TSH Urine Color Yellow Urine Appearance Turbid A Urine pH 5.5 Ur Specific [place] 1.019 Urine Protein Trace H Urine Glucose (UA) Negative Urine Ketones Trace H Urine Blood 1+ H Urine Nitrite Negative Urine Bilirubin Negative Urine Urobilinogen Negative Ur Leukocyte Esterase Negative Urine WBC (Auto) 1-5 Urine RBC (Auto) 0-4 U Hyaline Cast (Auto) 1-5 U Epithel Cells (Auto) >30 H Urine Bacteria (Auto) Negative Ur Renal Epithelial Cell 0-5 COVID-19 Eval Order COVID-19 PCR Influ A Molecular Assay Influ B Molecular Assay 11/30/19 08:43 WBC RBC Hgb Hct MCV MCH MCHC RDW Std Deviation RDW Coeff of Rahul Plt Count MPV Immature Gran % (Auto) Neut % (Auto) Lymph % (Auto) [place] % (Auto) Eos % (Auto) Baso % (Auto) Neut # (Auto) Lymph # (Auto) [place] # (Auto) Eos # (Auto) Baso # (Auto) Immature Gran # (Auto) PT INR Sodium Potassium Chloride Carbon Dioxide Anion Gap BUN Creatinine Est Cr Clr Drug Dosing Est GFR ( Amer) Est GFR (Non-Af Amer) BUN/Creatinine Ratio Glucose POC Glucose 93 Lactate Calcium Magnesium Total Bilirubin AST ALT Alkaline Phosphatase Troponin I Total Protein Albumin Globulin Albumin/Globulin Ratio Lipase TSH Urine Color Urine Appearance Urine pH Ur Specific [place] Urine Protein Urine Glucose (UA) Urine Ketones Urine Blood Urine Nitrite Urine Bilirubin Urine Urobilinogen Ur Leukocyte Esterase Urine WBC (Auto) Urine RBC (Auto) U Hyaline Cast (Auto) U Epithel Cells (Auto) Urine Bacteria (Auto) Ur Renal Epithelial Cell COVID-19 Eval Order COVID-19 PCR Influ A Molecular Assay Influ B Molecular Assay Medications Administered Current Inpatient Medications Aspirin (Aspirin 81 Mg Ectab) 81 mg PO QAM RA Stop: 12/30/19 08:59 Last Admin: 11/30/19 07:59 Dose: 81 mg Documented by: Atorvastatin Calcium (Atorvastatin 40 Mg Tab) 40 mg PO DAILY RA Stop: 12/30/19 08:59 Last Admin: 11/30/19 07:59 Dose: 40 mg Documented by: Dextrose (Dextrose 50% 50 Ml Syringe) 25 - 50 ml IV UD PRN; Protocol PRN Reason: Hypoglycemia Protocol Stop: 12/29/19 23:16 Enoxaparin Sodium (Enoxaparin Inj 40 Mg/0.4 Ml Syr) 40 mg SQ Q24H RA Stop: 12/30/19 11:14 Last Admin: 11/30/19 10:16 Dose: 40 mg Documented by: Fluticasone Propionate (Fluticasone Propionate Na Spr 16 Gm Btl) 1 sprays NA DAILY RA Stop: 12/30/19 08:59 Last Admin: 11/30/19 08:01 Dose: 1 sprays Documented by: Fluticasone/Vilanterol (Fluticasone/Vilanterol 200/25mcg 14 Puffs/Inhaler) 1 puffs INH DAILY RA; Protocol Stop: 12/30/19 08:59 Last Admin: 11/30/19 08:00 Dose: 1 puffs Documented by: Glucagon (Glucagon For Inj 1 Mg Vial) 1 mg SQ UD PRN; Protocol PRN Reason: Hypoglycemia Protocol Stop: 12/29/19 23:16 Glucose (Glucose 10 Tabs/Tube) 4 - 8 tabs PO UD PRN; Protocol PRN Reason: Hypoglycemia Protocol Stop: 12/29/19 23:16 Glucose (Glucose 40% Gel 15 Gm Tube) 15 - 30 gm PO UD PRN; Protocol PRN Reason: Hypoglycemia Protocol Stop: 12/29/19 23:16 Acetaminophen (Ofirmev) 1,000 mg in 100 mls @ 400 mls/hr IV Q8H PRN PRN Reason: Pain or Fever Stop: 12/02/19 21:13 Last Infusion: 11/30/19 08:10 Dose: Infused Documented by: Lactated Ringer's (Lr) 1,000 mls @ 80 mls/hr IV .[id number] [facility] Stop: 12/29/19 21:44 Last Admin: 11/30/19 10:15 Dose: 80 mls/hr Documented by: Piperacillin Sod/Tazobactam (Sod 3.375 gm/ Dextrose) 115 mls @ 28.75 mls/hr IV Q8H [facility]; Protocol Stop: 12/10/19 03:59 Last Admin: 11/30/19 11:43 Dose: 28.8 mls/hr Documented by: Insulin Aspart (Insulin Aspart 100 Units/Ml 3 Ml Pen) 0 units SC ACHS [facility] Stop: 12/30/19 07:29 Last Admin: 11/30/19 09:56 Dose: Not Given Documented by: Isosorbide Mononitrate (Isosorbide Mononitrate 20 Mg Tab) 10 mg PO TID [facility] Stop: 12/30/19 08:59 Last Admin: 11/30/19 08:00 Dose: 10 mg Documented by: Latanoprost (Latanoprost 0.005% Op Soln 2.5 Ml Btl) 1 drops OPB HS [facility] Stop: 12/29/19 21:13 Last Admin: 11/29/19 22:18 Dose: 1 drops Documented by: Metoprolol Tartrate (Metoprolol Tartrate 25 Mg Tab) 75 mg PO BID [facility] Stop: 12/29/19 21:13 Last Admin: 11/30/19 08:00 Dose: 75 mg Documented by: Miscellaneous (Carbohydrates For Hypoglycemia ) 15 - 30 gm PO UD PRN PRN Reason: Hypoglycemia Protocol Stop: 12/29/19 23:16 Miscellaneous Information (Piperacill/Tazobac Consult Active) 1 ea N/A UD PRN PRN Reason: Consult Stop: 12/29/19 15:25 Multivitamins/Minerals (Calcium 600mg + Vit D 400 Iu Tab) 1 tab PO DAILY RA Stop: 12/30/19 08:59 Last Admin: 11/30/19 08:00 Dose: 1 tab Documented by: Nitroglycerin (Nitroglycerin Sl 0.4 Mg/Tab Tab) 0.4 mg SL UD PRN PRN Reason: chest pain Stop: 12/29/19 21:13 Ondansetron HCl (Ondansetron Inj 2 Mg/Ml 2 Ml Vial) 4 mg IV Q6H PRN PRN Reason: Nausea Stop: 12/29/19 21:13 Oxycodone/Acetaminophen (Oxycodone/Apap 7.5/325mg Tab) 1 tab PO Q6H PRN PRN Reason: Pain Stop: 12/14/19 11:17 Last Admin: 11/30/19 11:40 Dose: 1 tab Documented by: Pantoprazole Sodium (Pantoprazole 40 Mg Tab) 40 mg PO DAILY [facility] Stop: 12/30/19 08:59 Last Admin: 11/30/19 08:00 Dose: 40 mg Documented by: PG Care Time/CCT Total # of Minutes Spent Total Time Spent with Patient: Total time spent is greater than 50% in coordination of care (as documented) at patient's floor/unit and/or counseling patient: Coding Level of Care Code 96159 Subseq Hosp Care Lvl 2 Diagnoses Acute cholecystitis K81.0 Diabetes mellitus type 2, controlled E11.9 Coronary artery disease I25.10 Hypertension I10 Hyperlipidemia E78.5 GERD (gastroesophageal reflux disease) K21.9
[2019-11-30] MEDS ORDERED: HYDROCODONE/ACETAMOPHEN 5/325MG TAB PO PRN (16:04)
[2019-11-30] MEDS: LATANOPROST 0.005% OP SOLN 2.5 ML BTL OPB SCH (21:24)
[2019-11-30] MEDS: ACETAMINOPHEN 325 MG TAB PO PRN (21:36)
[2019-12-01] MEDS: ACETAMINOPHEN 325 MG TAB PO PRN (03:44)
[2019-12-01] MEDS: PIPERACILLIN/TAZOBACTAM 3.375 GM in DEXTROSE 5% 100 ML IV SCH (04:51)
--- NOTE | 2019-12-01 07:22 | XRay Report ---
SINGLE VIEW CHEST CLINICAL HISTORY: Hypoxia. FINDINGS: An AP, portable, upright chest radiograph is compared to study dated 11/29/2019 and correla aydee with chest CT dated 05/10/2013. The cardiomediastinal silhouette is unremarkable. There are low topher ng volumes with elevation of the right hemidiaphragm and bibasilar atelectasis. No airspace consolida tion is seen typical for pneumonia and there is no large pleural effusion. No pneumothorax is seen. T he skeletal structures are osteopenic. The bony thorax is grossly intact. A surgical drain is noted i n the right upper quadrant. IMPRESSION: Low lung volumes with bibasilar atelectasis. ACT 112: Negative or not required by law. Electronically signed by: Charan Weston M.D. 12/01/2019 7:20 AM
[2019-12-01] MEDS: ISOSORBIDE MONONITRATE 20 MG TAB PO SCH (08:49)
[2019-12-01] MEDS: METOPROLOL TARTRATE 25 MG TAB PO SCH (08:50)
[2019-12-01] MEDS: PANTOprazole 40 MG TAB PO SCH (08:52)
[2019-12-01] MEDS: FLUTICASONE/VILANTEROL 200/25MCG 14 PUFFS/INHALER INH SCH (08:52)
[2019-12-01] MEDS: ASPIRIN 81 MG ECTAB PO SCH (08:53)
[2019-12-01] MEDS: ATORVASTATIN 40 MG TAB PO SCH (08:53)
[2019-12-01] MEDS: CALCIUM 600MG + VIT D 400 IU TAB PO SCH (08:53)
[2019-12-01] MEDS: FLUTICASONE PROPIONATE NA SPR 16 GM BTL SCH (08:53)
[2019-12-01] MEDS: LACTATED RINGER'S 1,000 ML IV SCH (08:59)
[2019-12-01] MEDS: ENOXAPARIN INJ 40 MG/0.4 ML SYR SQ SCH (10:17)
--- NOTE | 2019-12-01 10:25 | Surgery Progress Note ---
Date of Service pt is doing much better, no significant abdominal pain, tolerated diet, no nausea, no vomiting, no fever.JAMA 60ml, clear December 01, 2019 Assessment & Plan (1) Cholelithiasis and acute cholecystitis with obstruction: advance diet continue IV abx ambulate 12/01/2019, 10 : 26AM doing fine, pt wants to go home today, the post-op care instruction was given, F/U me next week, Admission and Anticipated Discharge Date Admission Date: November 29, 2019 Subjective patient doing well after surgery yesterday, no acute issues, pain was controlled with Percocet she is eating, no nausea/vomiting + flatus, no BM yet, she is voiding on her own appreciate surgery note labs reviewed, WBC down to 11k, Hb is stable, Cr and electrolytes stable discussed with her and family that likely home tomorrow Review of Systems Eyes: as per Subjective / HPI Ear, Nose, Mouth, Throat: as per Subjective / HPI Cardiovascular: Additional Comments: CAD, HTN, ID 4 years ago, one cardiac stent place, pt saw her cloth tearer last month, she was told her heart was Okay. carotic stenosis Gastrointestinal: + abdominal pain; no nausea, no vomiting and no change in bowel habits Genitourinary: dysuria, UTI Integumentary: as per Subjective / HPI Neurologic: as per Subjective / HPI chronic cerebral ischemia Psychiatric: as per Subjective / HPI Endocrine: as per Subjective / HPI DM Hematologic / Lymphatic: as per Subjective / HPI Allergy / Immunological: as per Subjective / HPI Physical Exam Constitutional: WD/WN, vitals as above well developed, well nourished, + acute distress and + ill appearing Eyes: PERRL, conjunctivae normal, anicteric sclerae ENMT: external ear and nose normal, oropharynx normal Neck: trachea midline, no thyromegaly Respiratory: normal respiratory effort, lungs clear to auscultation Cardiovascular: RRR, no murmur, no edema Rate/Rhythm: regular rate and regular rhythm Heart Sounds: normal S1 and normal S2 Gastrointestinal (Abdomen): normal bowel sounds, soft, nontender, no hepatosplenomegaly all incisions intact, no redness, JAMA intact Musculoskeletal: no cyanosis or clubbing, extremities motor strength 5/5 Skin: no rashes, warm and dry Neurologic: patellar DTR's 2+ bilat, sensation intact Psychiatric: Orientation: alert and oriented x 3 Results & Data ([facility]) Vital Signs (Past 12 Hours) Vital Signs Temp Pulse Resp BP BP Pulse Ox 12/01/19 07:54 36.6 C 59 L 18 124/74 95 12/01/19 03:49 97 12/01/19 03:47 37 C 57 L 16 117/68 87 L 11/30/19 23:07 37.3 C 77 18 96/56 L 96
--- NOTE | 2019-12-01 11:16 | Discharge Summary (DS) ---
DATE OF DISCHARGE: 12/01/2019 ADMITTING DIAGNOSIS: Acute cholecystitis, cholelithiasis. DISCHARGE DIAGNOSIS: Acute cholecystitis with gangrene. OPERATION: Laparoscopic cholecystectomy. SURGEON: Zachary Randhawa MD. DETAILS OF DISCHARGE SUMMARY: This is a [id number] who presented to ED with couple day history of right upper quadrant pain. The patient had an ultrasound diagnosis of acute cholecystitis and we took the patient to the OR. We did a laparoscopic cholecystectomy, JAMA drainage x1 and during the procedure, we found the patient had gangrene gallbladder. After procedure, the patient tolerated the procedure well. After procedure, the patient transferred to recovery room and later on transferred to the regular floor. The patient is doing fine and good comfort, incision pain, no significant abdominal pain, no nausea, no vomiting. She tolerated diet. PHYSICAL EXAMINATION: VITAL SIGNS: Today, temperature is 36.6, heart rate 59, respiratory rate 18, blood pressure 124/74, O2 saturation 95% on room air. GENERAL: The patient is alert, awake, oriented x3. HEENT: With normal limitation. NEUROLOGIC: Intact. NECK: No JVD. CHEST: Bilateral lung sounds clear. HEART: Normal S1, S2. No murmurs. ABDOMEN: Soft, no significant tenderness. All incisions intact and no redness. Bowel sounds positive. EXTREMITIES: No edema. PLAN: The patient wanted to go home today. We gave patient postop care instructions. The patient understands. I will follow up the patient next Thursday and also the JAMA drainage 60 mL daily and the patient will record the JAMA drainage every day. We will plan to remove the JAMA next week in my office. The patient understands. The patient agreed. I answered all questions.
--- NOTE | 2019-12-01 14:52 | Hospitalist Progress Note ---
Date of Service December 01, 2019 Assessment & Plan (1) Acute cholecystitis: acute choleycystitis with gangrene s/p lap todd on 11/28, tolerated well, no acute issues overnight Hb stable, WBC goind down, no fever continue Zosyn IV while inpatient, no need for antibiotics on discharge diet advanced, encourage to ambulate home today, keep JAMA drain until surgery sees her on Thursday pain control no further antibiotics (2) Diabetes mellitus type 2, controlled: hold Metformin Novolog monitor for hypoglycemia resume Metformin on discharge (3) Coronary artery disease: no chest pain or pressure post op BP low normal continue aspirin metoprolol, Imdur (4) Hypertension: BP low normal (5) Hyperlipidemia: Lipitor (6) GERD (gastroesophageal reflux disease): no reflux symptoms continue PPI Admission and Anticipated Discharge Date Admission Date: November 29, 2019 Subjective patient doing great, ready for discharge, eating, no pain, no nausea she was discharged by surgery Review of Systems Review of Systems: All systems reviewed & are unremarkable except as noted in Subjective Physical Exam Constitutional: WD/WN, vitals as above Neck: trachea midline, no thyromegaly Respiratory: normal respiratory effort, lungs clear to auscultation Cardiovascular: RRR, no murmur, no edema Gastrointestinal (Abdomen): Inspection/Auscultation: normal bowel sounds, + abdominal surgical incision (C/D/I) and + abdominal surgical drain present (JAMA from RUQ, serosanguinous fluid); abdomen not distended Percussion/Palpation: + abdomen tender (RUQ), abdomen soft and + tympanic to percussion; no guarding and abdomen not rigid Musculoskeletal: no cyanosis or clubbing, extremities motor strength 5/5 Skin: no rashes, warm and dry Neurologic: patellar DTR's 2+ bilat, sensation intact and PERRL, EOMI, accommodation nl, no face palsy, no dysarthria Psychiatric: A+Ox3, euthymic affect Lymphatic: no cervical or axillary lymphadenopathy Results & Data Results & Data ([facility]) Vital Signs (Past 12 Hours) Vital Signs Temp Pulse Pulse Resp BP BP Pulse Ox 12/01/19 11:55 36.6 C 79 59 L 18 124/74 117/68 95 12/01/19 07:54 36.6 C 59 L 18 124/74 95 12/01/19 03:49 97 10/15/20 03:47 37 C 57 L 16 117/68 87 L Laboratory Results Laboratory Results - last 24 hr 11/30/19 11/30/19 12/01/19 17:11 20:39 08:12 POC Glucose 100 H 103 H 93 12/01/19 12:31 POC Glucose 91 Medications Administered Current Inpatient Medications Acetaminophen (Acetaminophen 325 Mg Tab) 650 mg PO Q4H PRN PRN Reason: Fever Stop: 12/30/19 21:15 Last Admin: 12/01/19 03:44 Dose: 650 mg Documented by: Hydrocodone Bitart/Acetaminophen (Hydrocodone/Acetamophen 5/325mg Tab) 1 tab PO Q6H PRN PRN Reason: Pain Stop: 12/14/19 16:03 Last Admin: 11/30/19 18:24 Dose: 1 tab Documented by: Aspirin (Aspirin 81 Mg Ectab) 81 mg PO QAM RA Stop: 12/30/19 08:59 Last Admin: 12/01/19 08:53 Dose: 81 mg Documented by: Atorvastatin Calcium (Atorvastatin 40 Mg Tab) 40 mg PO DAILY RA Stop: 12/30/19 08:59 Last Admin: 12/01/19 08:53 Dose: 40 mg Documented by: Dextrose (Dextrose 50% 50 Ml Syringe) 25 - 50 ml IV UD PRN; Protocol PRN Reason: Hypoglycemia Protocol Stop: 12/29/19 23:16 Enoxaparin Sodium (Enoxaparin Inj 40 Mg/0.4 Ml Syr) 40 mg SQ Q24H RA Stop: 12/30/19 11:14 Last Admin: 12/01/19 10:17 Dose: Not Given Documented by: Fluticasone Propionate (Fluticasone Propionate Na Spr 16 Gm Btl) 1 sprays NA DAILY RA Stop: 12/30/19 08:59 Last Admin: 12/01/19 08:53 Dose: Not Given Documented by: Fluticasone/Vilanterol (Fluticasone/Vilanterol 200/25mcg 14 Puffs/Inhaler) 1 puffs INH DAILY RA; Protocol Stop: 12/30/19 08:59 Last Admin: 12/01/19 08:52 Dose: 1 puffs Documented by: Glucagon (Glucagon For Inj 1 Mg Vial) 1 mg SQ UD PRN; Protocol PRN Reason: Hypoglycemia Protocol Stop: 12/29/19 23:16 Glucose (Glucose 10 Tabs/Tube) 4 - 8 tabs PO UD PRN; Protocol PRN Reason: Hypoglycemia Protocol Stop: 12/29/19 23:16 Glucose (Glucose 40% Gel 15 Gm Tube) 15 - 30 gm PO UD PRN; Protocol PRN Reason: Hypoglycemia Protocol Stop: 12/29/19 23:16 Acetaminophen (Ofirmev) 1,000 mg in 100 mls @ 400 mls/hr IV Q8H PRN PRN Reason: Pain or Fever Stop: 12/02/19 21:13 Last Infusion: 11/30/19 08:10 Dose: Infused Documented by: Lactated Ringer's (Lr) 1,000 mls @ 80 mls/hr IV .[id number] [facility] Stop: 12/29/19 21:44 Last Admin: 12/01/19 08:59 Dose: 80 mls/hr Documented by: Piperacillin Sod/Tazobactam (Sod 3.375 gm/ Dextrose) 115 mls @ 28.75 mls/hr IV Q8H [facility]; Protocol Stop: 12/10/19 03:59 Last Infusion: 12/01/19 08:54 Dose: Infused Documented by: Insulin Aspart (Insulin Aspart 100 Units/Ml 3 Ml Pen) 0 units SC ACHS [facility] Stop: 12/30/19 07:29 Last Admin: 11/30/19 22:06 Dose: Not Given Documented by: Isosorbide Mononitrate (Isosorbide Mononitrate 20 Mg Tab) 10 mg PO TID [facility] Stop: 12/30/19 08:59 Last Admin: 12/01/19 08:49 Dose: 10 mg Documented by: Latanoprost (Latanoprost 0.005% Op Soln 2.5 Ml Btl) 1 drops OPB HS [facility] Stop: 12/29/19 21:13 Last Admin: 11/30/19 21:24 Dose: 1 drops Documented by: Metoprolol Tartrate (Metoprolol Tartrate 25 Mg Tab) 75 mg PO BID [facility] Stop: 12/29/19 21:13 Last Admin: 12/01/19 08:50 Dose: 75 mg Documented by: Miscellaneous (Carbohydrates For Hypoglycemia ) 15 - 30 gm PO UD PRN PRN Reason: Hypoglycemia Protocol Stop: 12/29/19 23:16 Miscellaneous Information (Piperacill/Tazobac Consult Active) 1 ea N/A UD PRN PRN Reason: Consult Stop: 12/29/19 15:25 Multivitamins/Minerals (Calcium 600mg + Vit D 400 Iu Tab) 1 tab PO DAILY RA Stop: 12/30/19 08:59 Last Admin: 12/01/19 08:53 Dose: 1 tab Documented by: Nitroglycerin (Nitroglycerin Sl 0.4 Mg/Tab Tab) 0.4 mg SL UD PRN PRN Reason: chest pain Stop: 12/29/19 21:13 Ondansetron HCl (Ondansetron Inj 2 Mg/Ml 2 Ml Vial) 4 mg IV Q6H PRN PRN Reason: Nausea Stop: 12/29/19 21:13 Last Admin: 11/30/19 18:24 Dose: 4 mg Documented by: Pantoprazole Sodium (Pantoprazole 40 Mg Tab) 40 mg PO DAILY RA Stop: 12/30/19 08:59 Last Admin: 12/01/19 08:52 Dose: 40 mg Documented by: PG Care Time/CCT Total # of Minutes Spent Total Time Spent with Patient: Total time spent is greater than 50% in coordination of care (as documented) at patient's floor/unit and/or counseling patient: Coding Level of Care Code 80031 Subseq Hosp Care Lvl 2 Diagnoses Acute cholecystitis K81.0 Diabetes mellitus type 2, controlled E11.9 Coronary artery disease I25.10 Hypertension I10 Hyperlipidemia E78.5 GERD (gastroesophageal reflux disease) K21.9
== END 2019-12-01 15:04 | disposition home or self-care (01) ==
LOC: ED 13:04 → INTOOBSV 16:50 → 3N 16:50 → SUATTDRO 16:50 → ASU 17:25